=== PATIENT | male | born 1975 | race Caucasian/White ===

== ENCOUNTER 2017-01-12 23:50 | Inpatient (IN) | payer OTHER ==
--- NOTE | ~2017-01-12 | CO ---
Unit #: [id number] #: [id number] Patient: TIERA CHAN H [id number] [facility] [address] [place], [place] [address] [id number] I MR#: [id number] NAME: TIERA CHAN ROOM: 464 Age: 41 Sex: M Admission Date: 01/13/2017 : 1975 Attending Physician: Ham Ravi M.D. Primary Care Physician: Aramis Sorenson M.D. Consultation Date: 01/21/2017 CONSULTATION REPORT REASON FOR CONSULTATION Followup. DISCUSSION Mr. Tiera Chan is a 41-year-old male, seen in room 464, bed 1, at [facility] on 01/21/2017. The patient was anxious, nervous, mood labile. The patient reports medication is helping him. The patient is reporting still having some withdrawals, but reports medication is helping him. The patient denied any thoughts of harming self or others or any psychotic symptom. REVIEW OF SYSTEMS Complete review of systems unremarkable. MENTAL STATUS EXAMINATION General appearance, the patient dressed in hospital attire, lying comfortably, seemed to be in somewhat pain, anxious. Attention span and concentration, fair. Speech, regular rate and coherent. Oriented in time, place, and person. Mood and affect were labile, anxious. Thought process, coherent. Thought content, the patient denied any thoughts of harming self or others or any psychotic symptom. Recent and remote memory, fair. Language, able to name object and repeat phrases. Fund of knowledge, fair. Insight and judgment, fair to slightly impaired. DIAGNOSES Psychiatric: Opioid use disorder, severe, F11.20; agoraphobia with panic disorder, F40.01; mood disorder, not otherwise specified, F32.9. ASSESSMENT AND PLAN 1. Supportive psychotherapy and psychoeducation provided to the patient. 2. Educated about benefits and side effects of medication and course and prognosis of illness. 3. Continue with current medication with a plan to add Seroquel 50 mg at bedtime. We will continue to follow. Please feel free to call if any questions, telephone #[phone]. Dictated by... Joe Post M.D. JACIEL/sherif TD: 01/21/2017 20:38 JOB #: [id number] Unit #: [id number] #: [id number] Patient: TIERA CHAN CONSULTATION REPORT X Joe Post MD CONSULTATION REPORT
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
--- NOTE | ~2017-01-12 | CO ---
Unit #: [id number] #: [id number] Patient: TIERA WING [id number] [facility] [address] [facility] [place] [facility]. [place], [place] [address] [id number] I MR#: [id number] NAME: TIERA WING. ROOM: 464 Age: 41 Sex: M Admission Date: 01/13/2017 : 1975 Attending Physician: Ham Ravi M.D. Primary Care Physician: Aramis Sorenson M.D. Consultation Date: 01/17/2017 CONSULTATION REPORT REASON FOR CONSULTATION Followup. DISCUSSION Tiera Ruvalcaba is a 41-year-old white male, seen on 01/17/2017 in room 464 at [facility]. The patient's both arms were bandaged. The patient reports that currently withdrawing from opioids. The patient reports medication is helping him. He denied any suicidal or homicidal ideation. Denied any psychotic symptom. The patient reports still having withdrawal symptoms from opioids. REVIEW OF SYSTEMS Complete review of systems unremarkable. MENTAL STATUS EXAMINATION General appearance, the patient dressed casually, lying comfortably in bed. Attention span and concentration, fair. Speech, regular rate. Oriented in time, place, and person. Mood and affect were sad and dysphoric. Thought process, coherent and goal directed. Thought content, the patient denied any thoughts of harming self or others or any psychotic symptom. Recent and remote memory, fair. Language, able to name object, repeat phrases. Fund of knowledge, fair. Insight and judgment, fair to slightly impaired. DIAGNOSES 1. Opioid use disorder, severe, F10.20. 2. Agoraphobia with panic disorder, F40.01. 3. Mood disorder, not otherwise specified, F32.9. ASSESSMENT/PLAN 1. Supportive psychotherapy and psychoeducation were provided to the patient. 2. Educated about benefits and side effects of medication and course and prognosis of illness. 3. If needed, consider increasing the dosage of trazodone if the patient continues to have problems or consider Seroquel. We will closely monitor. Please feel free to call if any questions, telephone #[phone]. Dictated by... Joe Post M.D. JACIEL/sherif MARRUFO: 01/18/2017 13:37 Unit #: [id number] #: [id number] Patient: MECCATIERA H TD: 01/19/2017 06:40 JOB #: [id number] CONSULTATION REPORT X Joe Post MD CONSULTATION REPORT
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
--- NOTE | ~2017-01-12 | CT125 ---
[facility] A Service of [facility] RADIOLOGY TEXT RESULTS PATIENT: TIERA WING LOCATION: [facility] 464-01 : [birth year] UNIT #: [id number] AGE: [address]: Jarrod Crisostomo MD SEX: M ORDER DR: [id number] [place] [address] [facility]. [place], [place] [address] [id number] I MR#: [id number] Acc #: [id number] NAME: TIERA WING : 1975 SEX: M STUDY DATE/TIME: 01/14/2017 9:26 UNIT: [facility] ROOM: 4 STUDY DESCRIPTION: CT Upper Ext Lt W Cont Attending Physician: Jarrod Crisostomo M.D. Ordering Physician: Physician Non-Staff Primary Care Physician: Aramis Sorenson M.D. MEDICAL IMAGING REPORT This report is preliminary unless electronic signature is present EXAM CT left arm with contrast 01/14/2017. HISTORY 41-year-old male with history of IV drug abuse presenting with left arm swelling, erythema, cellulitis. Ultrasound yesterday showing enlargement of the left biceps muscle with ill-defined deep muscular compartment fluid concerning for infection, possible necrotizing fasciitis. CT for further evaluation. TECHNIQUE CT examination of the left upper extremity was performed with IV contrast enhancement from the shoulder through the wrist. Multiplanar reconstructed images. This CT exam was performed with one or more of the following radiation dose reduction techniques: automatic exposure control, adjustment of mA and/or kV according to patient size, and iterative reconstruction. FINDINGS The examination shows evidence of extensive intramuscular abscess within the left biceps muscle extending from the upper third of the arm to the antecubital fossa. This is seen as a rim-enhancing oblong fluid collection extending over 19 cm in length and measuring up to 2.2 x 0.9 cm in short axis diameter. There is evidence of deep muscle compartment swelling in the region of the biceps throughout the upper arm, and intramuscular fluid/edema is best seen on the ultrasound examination yesterday. There is no soft tissue gas to definitively suggest necrotizing fasciitis, but the above listed findings are highly concerning. The patient should be at high risk for development of compartment syndrome. Surgical consultation is recommended. Enlarged left axillary lymph nodes, likely inflammatory in the current STS. [facility] A Service of [facility] RADIOLOGY TEXT RESULTS PATIENT: TIERA WING LOCATION: [facility] 464-01 : [birth year] UNIT #: [id number] AGE: [address]: Jarrod Crisostomo MD SEX: M ORDER DR: clinical setting. No abscess or other fluid collection is seen within the forearm, but there is extensive subcutaneous edema throughout the entire arm. Previous ORIF across a nondisplaced humeral shaft fracture. IMPRESSION 1. Extensive intramuscular abscess throughout the left biceps muscle extending from the proximal third of the upper arm to the elbow over a length of at least 19 cm, measuring up to 2.2 x 0.9 cm. 2. There is a significant associated deep muscle compartment soft tissue swelling around the biceps muscle, and extensive intramuscular edema fluid is visible on ultrasound yesterday. Although no soft tissue gas is visible on this exam, the imaging findings are concerning for developing necrotizing fasciitis. The patient should be at high risk for the development of compartment syndrome. Clinical correlation and surgical consultation recommended. 3. Extensive subcutaneous soft tissue edema within the arm. No forearm abscess is visible. 4. Left axillary adenopathy, nonspecific but likely inflammatory. Joaquin fixation across nondisplaced humeral shaft fracture. Dictated by... Porfirio Figueroa M.D. THIS IS AN ELECTRONICALLY VERIFIED REPORT Porfirio Figueroa M.D. at 01/14/2017 3:06 PM Graciela TD: 01/14/2017 11:11 JOB #: [id number] MEDICAL IMAGING REPORT COPY
--- NOTE | ~2017-01-12 | US139 ---
[facility] A Service of [facility] RADIOLOGY TEXT RESULTS PATIENT: TIERA WING LOCATION: [facility] 46-01 : [birth year] UNIT #: [id number] AGE: [address]: Jarrod Crisostomo MD SEX: M ORDER DR: [id number] [facility]. [place] [id number] [facility]. [place], [place] [address] [id number] I MR#: [id number] Acc #: [id number] NAME: TIERA WING : 1975 SEX: M STUDY DATE/TIME: 01/13/2017 10:38 UNIT: [facility] ROOM: [facility] STUDY DESCRIPTION: US UE Veins Complete Kilo Stdy Attending Physician: Jarrod Crisostomo M.D. Ordering Physician: Ed Doctor [id number] [facility] Primary Care Physician: Aramis Sorenson M.D. MEDICAL IMAGING REPORT This report is preliminary unless electronic signature is present EXAM Venous Doppler ultrasound, both legs, 01/13/2017. HISTORY 41-year-old male with history of IV drug abuse. Bilateral arm pain and swelling. TECHNIQUE Venous Doppler ultrasound examination of both upper extremities using johnson-scale, spectral Doppler, color flow Doppler ultrasound imaging. FINDINGS There is no evidence of upper extremity DVT on the right or left. Internal jugular vein, subclavian vein, axillary vein and brachial veins are patent bilaterally. No superficial venous thrombus is seen within the cephalic or basilic veins. Extensive subcutaneous fluid collection is seen within the right forearm measuring up to 0.8 cm in thickness and at least 3 cm in length, although there may be inner connections with smaller collections. On the left, ill-defined fluid surrounds the left biceps muscle, concerning for deep compartment infection. If there is clinical concern for necrotizing fasciitis, CT examination of the arm with contrast is recommended. IMPRESSION 1. No evidence of upper extremity DVT on the right or left. 2. Extensive and ill-defined subcutaneous fluid collection in the left distal forearm as noted, concerning for abscess on the current clinical setting. 3. Ill-defined fluid surrounds portions of an enlarged right biceps muscle within the upper arm. The appearance is concerning for deep STS. [facility] A Service of [facility] RADIOLOGY TEXT RESULTS PATIENT: TIERA WING LOCATION: [place] [address] : [birth year] UNIT #: [id number] AGE: [address]: Jarrod Crisostomo MD SEX: M ORDER DR: compartment muscular space infection. If there is clinical concern for necrotizing fasciitis or compartment syndrome, CT examination of the left arm with IV contrast is recommended for further evaluation. Dictated by... Porfirio Figueroa M.D. THIS IS AN ELECTRONICALLY VERIFIED REPORT Porfirio Figueroa M.D. at 01/13/2017 3:01 PM ARNALDO/brook TD: 01/13/2017 11:44 JOB #: [id number] MEDICAL IMAGING REPORT COPY
--- NOTE | ~2017-01-12 | OR ---
Unit #: [id number] #: [id number] Patient: TIERA WING [id number] [address] [address] [id number] I MR#: [id number] NAME: TIERA WING. ROOM: 464 Date of Procedure: 01/15/2017 Admission Date: 01/13/2017 Surgeon: Anoop Roland M.D. : 1975 Attending Physician: Ham Ravi M.D. Primary Care Physician: Aramis Sorenson M.D. OPERATIVE REPORT JOB NOTE: CC: HIPS PHYSICIAN PREOPERATIVE DIAGNOSIS Multiple abscesses of right and left upper extremities. POSTOPERATIVE DIAGNOSIS Multiple abscesses of right and left upper extremities. PROCEDURES PERFORMED 1. Incision and drainage of right forearm abscess x2. 2. Incision and drainage of left forearm abscess x2. 3. Incision and drainage of left upper extremity intramuscular abscess. ANESTHESIA General LMA anesthesia with 0.5% Marcaine plain local anesthesia. FINDINGS The patient was found to have superficial abscesses 3 to 4 cm in size x2 on the right forearm and of the left forearm. There was a large deep abscess extending from the left antecubital fossa up intramuscularly between the heads of the biceps. FLUIDS 1000 mL of crystalloid. ESTIMATED BLOOD LOSS 20 mL. DRAINS None. TUBES None. SPECIMENS Sent to microbiology. COMPLICATIONS None apparent. CONDITION The patient tolerated the procedure well. Unit #: [id number] #: [id number] Patient: TIERA WING INDICATIONS FOR PROCEDURE The patient is a 41-year-old white male, who presents at this time with multiple biopsies of right and left upper extremities. He states he has been injecting heroin. He presents at this time for further evaluation and treatment. DESCRIPTION OF PROCEDURE After obtaining informed consent as well as receiving scheduled antibiotics, the patient was brought to the operating room and after adequate general LMA anesthesia was obtained, had both his right and left upper extremities prepped and draped in a sterile fashion. Beginning on the right forearm, there were two 3 to 4 cm abscesses there near each other. Each was incised with a knife and then hemostasis obtained with the Bovie. Cultures were sent to microbiology. All loculations were broken up. All areas were irrigated and infiltrated with 0.5% Marcaine plain local anesthesia. Hemostasis was obtained with the Bovie and packed with saline soaked fluff dressings. In a similar fashion, there were 2 abscesses of the left forearm. They were incised, drained, and irrigated. Hemostasis obtained with the Bovie and then infiltrated with 0.5% Marcaine plain local anesthesia and packed with saline soaked fluffs. An incision was now made longitudinally on the anterior surface of the biceps area of the left upper extremity. It was made through the skin with a knife into the subcutaneous tissues to the level of the musculature with the Bovie. A hemostat was used to gently probe between the heads of the biceps and a large amount of purulent material was evacuated. The incision was extended proximally and distally. All loculations were broken up. A large abscess cavity was found in the antecubital fossa and extended between the heads of the biceps. Loculations were broken up. The wound was irrigated and hemostasis was obtained with Bovie, infiltrated with 0.5% Marcaine plain local anesthesia and packed with a saline soaked Tevin. A dry dressings were applied to all areas followed by a Kerlix wrap and an Nolan wrap. Needle counts, sponge counts, and instrument counts were all correct as reported by the scrub nurse x2. The patient went from the operating room to the recovery room in stable condition. Dictated by... Yosi Escudero/sherif TD: 01/15/2017 22:07 JOB #: [id number] CC: [facility] OPERATIVE REPORT X Anoop Roland MD X PROCEDURE OPERATIVE NOTE
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
--- NOTE | ~2017-01-12 | XA51 ---
[facility] A Service of [facility] RADIOLOGY TEXT RESULTS PATIENT: TIERA WING LOCATION: [place] [address] : [birth year] UNIT #: [id number] AGE: [address]: Ham Ravi MD SEX: M ORDER DR: [id number] [place] [id number] [facility]. [place], [place] [address] [id number] MR#: [id number] Acc #: [id number] NAME: TIERA WING. : 1975 SEX: M STUDY DATE/TIME: 01/22/2017 10:29 UNIT: [facility] ROOM: [facility] STUDY DESCRIPTION: XA BX Bone Marrow Attending Physician: Ham Ravi M.D. Ordering Physician: Shreyas Serna M.D. Primary Care Physician: Aramis Sorenson M.D. MEDICAL IMAGING REPORT This report is preliminary unless electronic signature is present EXAM Fluoroscopically guided bone marrow aspiration and biopsy DATE: 01/22/17 HISTORY: Anemia PROCEDURE: Informed consent was obtained. The skin site was selected using fluoroscopic guidance and marked, sterilely prepped and draped and locally anesthetized. Fentanyl and Versed were administered for IV conscious sedation with hemodynamic monitoring by the nursing staff throughout the procedure. After local anesthesia, through a small incision a Jamshidi needle was used to aspirate and core specimen from right posterior ilium. A single spot image was obtained, fluoro time 0.8 minutes. IMPRESSION Successful fluoroscopically guided bone marrow aspiration and core biopsy from the right posterior ilium using local anesthesia and conscious sedation. No complications. Dictated by... Servando Bustamante M.D. THIS IS AN ELECTRONICALLY VERIFIED REPORT Servando Bustamante M.D. at 02/01/2017 3:46 PM KENYON/damir TD: 01/30/2017 13:30 JOB #: [id number] [facility] A Service [facility] RADIOLOGY TEXT RESULTS PATIENT: TIERA WING [facility] [id number] : [birth year] UNIT #: [id number] AGE: [address]: Ham Ravi MD SEX: M ORDER DR: MEDICAL IMAGING REPORT COPY
--- NOTE | ~2017-01-12 | EKG ---
PATIENT: TIERA WING UNIT #: [id number] Ventricular Rate: 108 BPM Atrial Rate: 108 BPM P-R Interval: 136 ms QRS Duration: 84 ms Q-T Interval: 342 ms QTC Calculation(Bezet): 458 ms P [place]: 63 degrees Calculated R [place]: 8 degrees Calculated T [place]: 47 degrees Diagnosis Line: Sinus tachycardia Diagnosis Line: Possible Left atrial enlargement Diagnosis Line: Borderline ECG Diagnosis Line: When compared with ECG of 06-NOV-2016 18:44, Diagnosis Line: No significant change was found Diagnosis Line: Confirmed by MAGUE DOTSON MD ([id number]) on Diagnosis Line: 01/14/2017 10:36:56 PM INTERPRETING MD: PASHA
--- NOTE | ~2017-01-12 | CO ---
Unit #: [id number] #: [id number] Patient: TIERA WING [id number] [address] [place], [place] [address] [id number] I MR#: [id number] NAME: TIERA WING ROOM: 464 Age: 41 Sex: M Admission Date: 01/13/2017 : 1975 Attending Physician: Ham Ravi M.D. Primary Care Physician: Aramis Sorenson M.D. Consultation Date: 01/18/2017 CONSULTATION REPORT REASON FOR CONSULTATION Followup. DISCUSSION Mr. Tiera Soriano is a 41-year-old white male, seen on 01/18/2017, in room 464. The patient was pleasant and cooperative during interview. The patient's both arms were bandaged and having problem with bleeding from the right hand. According to the nurse and the patient, the patient having problems with blood disorder and is scheduled to have a bone marrow biopsy. The patient was somewhat anxious and nervous and reported having some trouble sleeping. The patient's hemoglobin was 9.2 and platelets 1405, high. The patient reported still having anxiety, but medication is helping. The patient currently denied any suicidal or homicidal ideation. Compliant with medication. Cooperative on the unit. REVIEW OF SYSTEMS Complete review of systems is unremarkable except as mentioned above. MENTAL STATUS EXAMINATION General appearance; the patient dressed casually in hospital attire, lying comfortably in bed, seemed to be somewhat anxious. The patient's both arms were bandaged. Attention span and concentration, fair. Speech, regular rate and coherent. Oriented in time, place, and person. Mood and affect were labile and anxious. Thought process, coherent. Thought content, the patient denied any thoughts of harming self or others or any psychotic symptom. Recent and remote memory, fair. Language, able to name object and repeat phrases. Fund of knowledge, fair. Insight and judgment, fair to slightly impaired. DIAGNOSES Psychiatric: Opioid use disorder, severe, F11.20; agoraphobia with panic disorder, F40.01; and mood disorder, not otherwise specified, F32.9. ASSESSMENT/PLAN 1. Supportive psychotherapy and psychoeducation provided to the patient. 2. Educated about benefits and side effects of medication and course and prognosis of illness. 3. We will continue with current medication. If needed, consider adjusting the dosage of trazodone or consider Seroquel. We will continue to follow. Please feel free to call if any questions, telephone #[phone]. Dictated by... Unit #: [id number] #: [id number] Patient: TIERA WING Yosi Plummer/sherif TD: 01/19/2017 17:40 JOB #: [id number] CONSULTATION REPORT X Joe Post MD X CONSULTATION REPORT
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
--- NOTE | ~2017-01-12 | CR63 ---
[facility] A Service of [facility] RADIOLOGY TEXT RESULTS PATIENT: TIERA WING LOCATION: [place] [address] : [birth year] UNIT #: [id number] AGE: [address]: Jarrod Crisostomo MD SEX: M ORDER DR: [id number] [place] [id number] [facility]. [place], [place] [address] [id number] I MR#: [id number] Acc #: [id number] NAME: TIERA WING : 1975 SEX: M STUDY DATE/TIME: 01/13/2017 9:27 UNIT: [facility] ROOM: [facility] STUDY DESCRIPTION: CR Chest 2 View Attending Physician: Jarrod Crisostomo M.D. Ordering Physician: Ed Doctor [id number] [facility] Primary Care Physician: Aramis Sorenson M.D. MEDICAL IMAGING REPORT This report is preliminary unless electronic signature is present EXAM PA and lateral chest 01/13/2017. HISTORY 41-year-old male in the ED complaining of new onset shortness of air, cough and wheezing beginning last evening. TECHNIQUE PA and lateral upright chest series. FINDINGS Exam shows no definite active disease in the chest. There are prior left third and fourth rib fractures, and an adjacent left upper lobe pneumatocele visible on 10/30/2016 has largely regressed with only mild adjacent pleural thickening and linear pulmonary scarring in this location today. No convincing acute pulmonary filtrate or pleural effusion. Heart size and pulmonary vascularity are normal. Previous ORIF left humerus fracture. IMPRESSION 1. No active disease. 2. Post-traumatic changes in the left upper chest including old rib fractures and pulmonary and pleural scarring. Dictated by... Porfirio Figueroa M.D. THIS IS AN ELECTRONICALLY VERIFIED REPORT Porfirio Figueroa M.D. at 01/13/2017 3:01 PM ARNALDO/brook TD: 01/13/2017 13:06 [facility] A Service of [facility] RADIOLOGY TEXT RESULTS PATIENT: TIERA WING LOCATION: [place] [address] : [birth year] UNIT #: [id number] AGE: [address]: Jarrod Crisostomo MD SEX: M ORDER DR: JOB #: [id number] MEDICAL IMAGING REPORT COPY
[~2017-01-12 23:50] MED LIST: ACETAMINOPHEN650 M1 PO; CLEOCIN PO; DAKIN'S MODIF1000 ML EXT; DESYREL50 MG PO; FOLIC ACID PO; KLONOPIN PO; LORTAB 7.51 TAB PO; NICOTINE TRANSD14 MG EXT; NICOTINE TRANSD21 MG EXT; NO MEDICATIONS; PERCOCET 7.5/321 TAB PO; PROTONIX PO; SEROQUEL PO; VICODIN 5/1 TAB 5/50 DOB; VISTARIL PO
[2017-01-13 02:31] LABS: POC - CKMB <1.0 ng/mL (0.0-7.9); POC - TROPONIN <0.05 ng/mL (<=0.05)
[2017-01-13 02:35] LABS: AMPHETAMINE NEG (NEG); BARBITURATES NEG (NEG); BENZODIAZEPINES POS (NEG); COCAINE NEG (NEG); MARIJUANA POS (NEG); OPIATES POS (NEG); TRICYCLIC ANTIDEPRESSANTS POS (NEG); U METHADONE NEG (NEG)
[2017-01-13 02:37] LABS: ALBUMIN SERUM 3.4 g/dL (3.5-5.0); ALCOHOL BLOOD 48 mg/dL (0); ALKALINE PHOSPHATASE 202 U/L (32-92); ALT (SGPT) 31 U/L (10-40); AST (SGOT) 49 U/L (10-42); BILIRUBIN, DIRECT 0.1 mg/dL (0.0-0.2); BILIRUBIN,INDIRECT 0.3 mg/dL (0.0-0.9); BILIRUBIN,TOTAL 0.4 mg/dL (0.2-2.0); BLOOD UREA NITROGEN 11 mg/dL (9-23); BUN/CREATININE RATIO 12.22; CALCIUM SERUM 8.1 mg/dL (8.4-10.2); CARBON DIOXIDE 23 mmol/L (22-31); CHLORIDE 101 mmol/L (100-111); CREATININE SERUM 0.9 mg/dL (0.6-1.4); GLOM FILT RATE Estimated ABOVE60 mL/min (>60); GLUCOSE FASTING 91 mg/dL (70-110); PROTEIN TOTAL SERUM 7.8 g/dL (6.0-8.3); SALICYLATE <4.0 mg/dL; SODIUM 133 mmol/L (135-145)
[2017-01-13 02:47] LABS: ACETAMINOPHEN <10 ug/mL
[2017-01-13] MEDS ORDERED: CALCIUM 600 + D1 TAB PO (03:01)
[2017-01-13] MEDS ORDERED: A THRU Z ADVAN1 EAC1 PO (03:01)
[2017-01-13] MEDS ORDERED: GRALISE1 EACH PO (03:03)
[2017-01-13] MEDS ORDERED: CLARITIN10 M2 PO (03:03)
[2017-01-13] MEDS ORDERED: MORPHINE SULFAT15 M3 PO (03:04)
[2017-01-13] MEDS ORDERED: OMEPRAZOLE20 M1 PO (03:05)
[2017-01-13] MEDS ORDERED: QUETIAPINE FUM100 MG PO (03:06)
[2017-01-13 11:58] LABS: BASOPHIL# 0.2 X10e3 (0-0.3); BASOPHIL% 0.6 % (0-2.5); EOSINOPHIL# 0.7 X10e3 (0-0.7); EOSINOPHIL% 2.4 % (0.0-7.0); HEMATOCRIT 39.3 % (38.0-50.0); HEMOGLOBIN 12.4 gm/dL (13.0-16.0); LYMPHOCYTE# 2.7 X10e3 (1.0-3.5); LYMPHOCYTE% 9.6 % (17.0-45.0); MEAN CELL VOLUME 83.2 FL (83-96); MEAN CORPUSCULAR HEMOGLOBIN 26.3 PG (28-34); MEAN CORPUSCULAR HGB CONC 31.7 g/dL (30-36); MEAN PLATELET VOLUME 7.8 FL (6.5-11.5); MONOCYTE# 4.4 X10e3 (0-1.0); MONOCYTE% 15.4 % (3.0-12.0); NEUTROPHIL# 20.4 X10e3 (1.5-7.1); RED BLOOD COUNT 4.72 X10e (3.90-5.60); RED CELL DISTRIBUTION WIDTH 16.7 % (11.0-15.5); WHITE BLOOD COUNT 28.4 X10e3 (4.0-10.5)
[2017-01-13 12:00] LABS: DIFF IND YES; PLATELET COUNT 1303 X10e3 (140-420)
[2017-01-13 12:14] LABS: CREATININE SERUM 0.8 mg/dL (0.6-1.4); GLOM FILT RATE Estimated ABOVE60 mL/min (>60)
[2017-01-13 12:17] LABS: INR 1.1; PROTHROMBIN TIME (PATIENT) 11.2 SECONDS (9.6-11.5)
[2017-01-13 12:46] LABS: ANISOCYTOSIS SL; HYPOCHROMIA SL; MICROCYTOSIS SL; PLATELET ESTIMATE INCREASED (NORMAL)
[2017-01-13 17:21] LABS: PTT INCUB PAT + PNP 37.3 SECONDS; PTT INCUB PNP 29.4 SECONDS; PTT INCUBATED PATIENT 46.1 SECONDS; PTT PAT + PNP 33.1 SECONDS; PTT PATIENT 41.8 SECONDS (26.2-37.7); PTT PNP 26.8 SECONDS
[2017-01-14 02:42] LABS: BASOPHIL# 0.3 X10e3 (0-0.3); BASOPHIL% 1.2 % (0-2.5); EOSINOPHIL# 0.4 X10e3 (0-0.7); EOSINOPHIL% 1.6 % (0.0-7.0); HEMATOCRIT 39.5 % (38.0-50.0); HEMOGLOBIN 12.6 gm/dL (13.0-16.0); LYMPHOCYTE# 3.2 X10e3 (1.0-3.5); LYMPHOCYTE% 11.6 % (17.0-45.0); MEAN CELL VOLUME 82.8 FL (83-96); MEAN CORPUSCULAR HEMOGLOBIN 26.5 PG (28-34); MEAN PLATELET VOLUME 8.3 FL (6.5-11.5); MONOCYTE# 4.4 X10e3 (0-1.0); MONOCYTE% 16.3 % (3.0-12.0); NEUTROPHIL# 18.9 X10e3 (1.5-7.1); NEUTROPHIL% 69.3 % (40-75); RED BLOOD COUNT 4.77 X10e (3.90-5.60); RED CELL DISTRIBUTION WIDTH 16.3 % (11.0-15.5); WHITE BLOOD COUNT 27.2 X10e3 (4.0-10.5)
[2017-01-14 02:44] LABS: PLATELET COUNT 1313 X10e3 (140-420)
[2017-01-14 02:45] LABS: DIFF IND NO
[2017-01-14 02:55] LABS: BLOOD UREA NITROGEN 10 mg/dL (9-23); BUN/CREATININE RATIO 11.11; CARBON DIOXIDE 26 mmol/L (22-31); CHLORIDE 104 mmol/L (100-111); CREATININE SERUM 0.9 mg/dL (0.6-1.4); GLOM FILT RATE Estimated ABOVE60 mL/min (>60); GLUCOSE FASTING 112 mg/dL (70-110); POTASSIUM 3.8 mmol/L (3.5-5.1); SODIUM 133 mmol/L (135-145)
[2017-01-14 10:55] LABS: CPK (CREATINE PHOSPHOKINASE) 23 IU/L (36-174); LACTIC ACID DEHYDROGENASE 141 U/L (91-180)
[2017-01-15 02:46] LABS: BASOPHIL# 0.2 X10e3 (0-0.3); BASOPHIL% 0.9 % (0-2.5); EOSINOPHIL# 0.9 X10e3 (0-0.7); EOSINOPHIL% 3.6 % (0.0-7.0); HEMATOCRIT 35.6 % (38.0-50.0); HEMOGLOBIN 11.2 gm/dL (13.0-16.0); LYMPHOCYTE# 3.1 X10e3 (1.0-3.5); LYMPHOCYTE% 12.7 % (17.0-45.0); MEAN CELL VOLUME 82.7 FL (83-96); MEAN CORPUSCULAR HEMOGLOBIN 25.9 PG (28-34); MEAN CORPUSCULAR HGB CONC 31.4 g/dL (30-36); MEAN PLATELET VOLUME 8.2 FL (6.5-11.5); MONOCYTE# 3.7 X10e3 (0-1.0); MONOCYTE% 15.1 % (3.0-12.0); NEUTROPHIL# 16.4 X10e3 (1.5-7.1); NEUTROPHIL% 67.7 % (40-75); RED BLOOD COUNT 4.31 X10e (3.90-5.60); RED CELL DISTRIBUTION WIDTH 16.3 % (11.0-15.5); WHITE BLOOD COUNT 24.3 X10e3 (4.0-10.5)
[2017-01-15 02:48] LABS: PLATELET COUNT 1191 X10e3 (140-420)
[2017-01-15 02:49] LABS: DIFF IND NO
[2017-01-15 03:03] LABS: BLOOD UREA NITROGEN 9 mg/dL (9-23); BUN/CREATININE RATIO 11.25; CALCIUM SERUM 7.9 mg/dL (8.4-10.2); CARBON DIOXIDE 25 mmol/L (22-31); CHLORIDE 103 mmol/L (100-111); CREATININE SERUM 0.8 mg/dL (0.6-1.4); GLOM FILT RATE Estimated ABOVE60 mL/min (>60); GLUCOSE FASTING 137 mg/dL (70-110); SODIUM 135 mmol/L (135-145)
[2017-01-16 03:32] LABS: HEMOGLOBIN 10.1 gm/dL (13.0-16.0); MEAN CORPUSCULAR HEMOGLOBIN 26.3 PG (28-34); MEAN CORPUSCULAR HGB CONC 31.7 g/dL (30-36); MEAN PLATELET VOLUME 8.1 FL (6.5-11.5); RED BLOOD COUNT 3.85 X10e (3.90-5.60); RED CELL DISTRIBUTION WIDTH 16.5 % (11.0-15.5); WHITE BLOOD COUNT 23.3 X10e3 (4.0-10.5)
[2017-01-16 04:05] LABS: BLOOD UREA NITROGEN 9 mg/dL (9-23); CALCIUM SERUM 7.7 mg/dL (8.4-10.2); CARBON DIOXIDE 26 mmol/L (22-31); CHLORIDE 106 mmol/L (100-111); CREATININE SERUM 0.9 mg/dL (0.6-1.4); GLOM FILT RATE Estimated ABOVE60 mL/min (>60); GLUCOSE FASTING 151 mg/dL (70-110); MAGNESIUM 1.7 mg/dL (1.6-3.0); POTASSIUM 3.7 mmol/L (3.5-5.1); SODIUM 134 mmol/L (135-145)
[2017-01-17 04:28] LABS: BASOPHIL# 0.2 X10e3 (0-0.3); BASOPHIL% 1.1 % (0-2.5); EOSINOPHIL# 1.4 X10e3 (0-0.7); EOSINOPHIL% 6.8 % (0.0-7.0); HEMATOCRIT 31.7 % (38.0-50.0); HEMOGLOBIN 10.3 gm/dL (13.0-16.0); LYMPHOCYTE# 4.3 X10e3 (1.0-3.5); LYMPHOCYTE% 20.7 % (17.0-45.0); MEAN CELL VOLUME 82.8 FL (83-96); MEAN CORPUSCULAR HEMOGLOBIN 26.9 PG (28-34); MEAN CORPUSCULAR HGB CONC 32.5 g/dL (30-36); MEAN PLATELET VOLUME 8.3 FL (6.5-11.5); MONOCYTE# 3.6 X10e3 (0-1.0); MONOCYTE% 17.6 % (3.0-12.0); NEUTROPHIL# 11.1 X10e3 (1.5-7.1); NEUTROPHIL% 53.8 % (40-75); RED BLOOD COUNT 3.83 X10e (3.90-5.60); RED CELL DISTRIBUTION WIDTH 16.4 % (11.0-15.5); WHITE BLOOD COUNT 20.6 X10e3 (4.0-10.5)
[2017-01-17 04:47] LABS: BLOOD UREA NITROGEN 7 mg/dL (9-23); CALCIUM SERUM 8.2 mg/dL (8.4-10.2); CARBON DIOXIDE 28 mmol/L (22-31); CHLORIDE 106 mmol/L (100-111); GLOM FILT RATE Estimated ABOVE60 mL/min (>60); GLUCOSE FASTING 125 mg/dL (70-110); MAGNESIUM 1.8 mg/dL (1.6-3.0); SODIUM 138 mmol/L (135-145)
[2017-01-17 04:52] LABS: DIFF IND YES; PLATELET COUNT 1355 X10e3 (140-420)
[2017-01-17 04:56] LABS: POTASSIUM 5.7 mmol/L (3.5-5.1)
[2017-01-17 05:30] LABS: ANISOCYTOSIS SL; PLATELET ESTIMATE INCREASED (NORMAL)
[2017-01-17 08:05] LABS: BLOOD UREA NITROGEN 6 mg/dL (9-23); CALCIUM SERUM 8.2 mg/dL (8.4-10.2); CARBON DIOXIDE 27 mmol/L (22-31); CHLORIDE 104 mmol/L (100-111); GLOM FILT RATE Estimated ABOVE60 mL/min (>60); GLUCOSE FASTING 92 mg/dL (70-110); SODIUM 139 mmol/L (135-145)
[2017-01-17 08:07] LABS: POTASSIUM 4.1 mmol/L (3.5-5.1)
[2017-01-17 22:02] LABS: HA AB IGM (HEPPAN) Nonreactive (Nonreactive); HB CORE AB IGM (HEPPAN) Nonreactive (Nonreactive); HB S AG (HEPPAN) Nonreactive (Nonreactive); HEP C AB (HEPPAN) Reactive (Nonreactive)
[2017-01-18 03:59] LABS: BASOPHIL# 0.1 X10e3 (0-0.3); BASOPHIL% 0.4 % (0-2.5); EOSINOPHIL# 1.7 X10e3 (0-0.7); EOSINOPHIL% 8.7 % (0.0-7.0); HEMATOCRIT 29.3 % (38.0-50.0); HEMOGLOBIN 9.2 gm/dL (13.0-16.0); LYMPHOCYTE# 4.3 X10e3 (1.0-3.5); LYMPHOCYTE% 21.6 % (17.0-45.0); MEAN CELL VOLUME 82.2 FL (83-96); MEAN CORPUSCULAR HEMOGLOBIN 25.8 PG (28-34); MEAN CORPUSCULAR HGB CONC 31.4 g/dL (30-36); MEAN PLATELET VOLUME 8.1 FL (6.5-11.5); MONOCYTE# 3.1 X10e3 (0-1.0); MONOCYTE% 15.5 % (3.0-12.0); NEUTROPHIL# 10.7 X10e3 (1.5-7.1); NEUTROPHIL% 53.8 % (40-75); RED BLOOD COUNT 3.57 X10e (3.90-5.60); RED CELL DISTRIBUTION WIDTH 16.6 % (11.0-15.5); WHITE BLOOD COUNT 19.9 X10e3 (4.0-10.5)
[2017-01-18 04:07] LABS: DIFF IND NO; PLATELET COUNT 1405 X10e3 (140-420)
[2017-01-18 06:00] LABS: BLOOD UREA NITROGEN 7 mg/dL (9-23); BUN/CREATININE RATIO 6.36; CARBON DIOXIDE 29 mmol/L (22-31); CHLORIDE 104 mmol/L (100-111); CREATININE SERUM 1.1 mg/dL (0.6-1.4); GLOM FILT RATE Estimated ABOVE60 mL/min (>60); GLUCOSE FASTING 101 mg/dL (70-110); SODIUM 139 mmol/L (135-145)
[2017-01-19 04:15] LABS: HEMATOCRIT 29.1 % (38.0-50.0); HEMOGLOBIN 9.4 gm/dL (13.0-16.0); MEAN CELL VOLUME 82.4 FL (83-96); MEAN CORPUSCULAR HEMOGLOBIN 26.5 PG (28-34); MEAN CORPUSCULAR HGB CONC 32.2 g/dL (30-36); MEAN PLATELET VOLUME 8.3 FL (6.5-11.5); RED BLOOD COUNT 3.53 X10e (3.90-5.60); WHITE BLOOD COUNT 18.5 X10e3 (4.0-10.5)
[2017-01-19 04:24] LABS: PARTIAL THROMBOPLASTIN TIME 39.6 SECONDS (23.5-31.3); PROTHROMBIN TIME (PATIENT) 10.9 SECONDS (9.6-11.5)
[2017-01-19 04:39] LABS: ALBUMIN SERUM 2.5 g/dL (3.5-5.0); ALKALINE PHOSPHATASE 81 U/L (32-92); ALT (SGPT) 14 U/L (10-40); AST (SGOT) 21 U/L (10-42); BILIRUBIN,TOTAL 0.4 mg/dL (0.2-2.0); BLOOD UREA NITROGEN 9 mg/dL (9-23); CALCIUM SERUM 8.2 mg/dL (8.4-10.2); CARBON DIOXIDE 29 mmol/L (22-31); CHLORIDE 106 mmol/L (100-111); GLOM FILT RATE Estimated ABOVE60 mL/min (>60); GLUCOSE FASTING 95 mg/dL (70-110); POTASSIUM 4.4 mmol/L (3.5-5.1); PROTEIN TOTAL SERUM 6.5 g/dL (6.0-8.3); SODIUM 140 mmol/L (135-145)
[2017-01-19 19:38] LABS: IRON SERUM 9 ug/dL (45-182); TOTAL IRON BINDING CAPACITY 257 ug/dL (252-460); TRANSFERRIN 184 mg/dL (180-329); TRANSFERRIN SATURATION 4 % (20-50)
[2017-01-19 19:51] LABS: FERRITIN 61 ng/mL (24-336)
[2017-01-20 07:09] LABS: HEMATOCRIT 21.5 % (38.0-50.0); MEAN CELL VOLUME 81.8 FL (83-96); MEAN CORPUSCULAR HEMOGLOBIN 26.2 PG (28-34); MEAN PLATELET VOLUME 8.2 FL (6.5-11.5); RED BLOOD COUNT 2.63 X10e (3.90-5.60); RED CELL DISTRIBUTION WIDTH 16.7 % (11.0-15.5); WHITE BLOOD COUNT 23.1 X10e3 (4.0-10.5)
[2017-01-20 07:15] LABS: HEMOGLOBIN 6.9 gm/dL (13.0-16.0)
[2017-01-20 07:48] LABS: ALBUMIN SERUM 2.4 g/dL (3.5-5.0); ALKALINE PHOSPHATASE 78 U/L (32-92); ALT (SGPT) 12 U/L (10-40); AST (SGOT) 17 U/L (10-42); BILIRUBIN,TOTAL 0.3 mg/dL (0.2-2.0); BLOOD UREA NITROGEN 12 mg/dL (9-23); CALCIUM SERUM 8.2 mg/dL (8.4-10.2); CARBON DIOXIDE 29 mmol/L (22-31); CHLORIDE 102 mmol/L (100-111); GLOM FILT RATE Estimated ABOVE60 mL/min (>60); GLUCOSE FASTING 98 mg/dL (70-110); POTASSIUM 4.3 mmol/L (3.5-5.1); SODIUM 139 mmol/L (135-145)
[2017-01-21 03:02] LABS: HEMATOCRIT 28.5 % (38.0-50.0); MEAN CELL VOLUME 82.9 FL (83-96); MEAN CORPUSCULAR HEMOGLOBIN 26.9 PG (28-34); MEAN CORPUSCULAR HGB CONC 32.5 g/dL (30-36); MEAN PLATELET VOLUME 8.5 FL (6.5-11.5); RED BLOOD COUNT 3.44 X10e (3.90-5.60); RED CELL DISTRIBUTION WIDTH 16.3 % (11.0-15.5); WHITE BLOOD COUNT 23.5 X10e3 (4.0-10.5)
[2017-01-21 03:29] LABS: HEMOGLOBIN 9.3 gm/dL (13.0-16.0)
[2017-01-21 04:19] LABS: BLOOD UREA NITROGEN 15 mg/dL (9-23); CALCIUM SERUM 8.5 mg/dL (8.4-10.2); CARBON DIOXIDE 30 mmol/L (22-31); CHLORIDE 99 mmol/L (100-111); CREATININE SERUM 1.2 mg/dL (0.6-1.4); GLOM FILT RATE Estimated ABOVE60 mL/min (>60); GLUCOSE FASTING 100 mg/dL (70-110); POTASSIUM 4.2 mmol/L (3.5-5.1); SODIUM 138 mmol/L (135-145)
[2017-01-21 20:14] LABS: BASOPHIL# 0.4 X10e3 (0-0.3); BASOPHIL% 1.6 % (0-2.5); EOSINOPHIL% 4.1 % (0.0-7.0); HEMATOCRIT 32.4 % (38.0-50.0); HEMOGLOBIN 10.4 gm/dL (13.0-16.0); LYMPHOCYTE# 5.3 X10e3 (1.0-3.5); LYMPHOCYTE% 21.2 % (17.0-45.0); MEAN CORPUSCULAR HGB CONC 32.2 g/dL (30-36); MEAN PLATELET VOLUME 8.6 FL (6.5-11.5); MONOCYTE# 2.3 X10e3 (0-1.0); MONOCYTE% 9.1 % (3.0-12.0); NEUTROPHIL# 15.9 X10e3 (1.5-7.1); RED BLOOD COUNT 3.85 X10e (3.90-5.60); RED CELL DISTRIBUTION WIDTH 16.6 % (11.0-15.5); WHITE BLOOD COUNT 24.9 X10e3 (4.0-10.5)
[2017-01-21 20:30] LABS: PLATELET COUNT 1403 X10e3 (140-420)
[2017-01-21 20:31] LABS: DIFF IND YES
[2017-01-21 20:38] LABS: PLATELET ESTIMATE INCREASED (NORMAL)
[2017-01-21 20:39] LABS: ANISOCYTOSIS MOD; POLYCHROMASIA SL
[2017-01-21 20:40] LABS: STOMATOCYTE PRESENT
[2017-01-22 04:22] LABS: BASOPHIL# 0.4 X10e3 (0-0.3); BASOPHIL% 1.7 % (0-2.5); EOSINOPHIL# 1.3 X10e3 (0-0.7); EOSINOPHIL% 5.6 % (0.0-7.0); HEMATOCRIT 28.2 % (38.0-50.0); HEMOGLOBIN 9.1 gm/dL (13.0-16.0); LYMPHOCYTE# 5.4 X10e3 (1.0-3.5); LYMPHOCYTE% 22.3 % (17.0-45.0); MEAN CELL VOLUME 83.4 FL (83-96); MEAN CORPUSCULAR HGB CONC 32.4 g/dL (30-36); MEAN PLATELET VOLUME 8.6 FL (6.5-11.5); MONOCYTE# 2.6 X10e3 (0-1.0); MONOCYTE% 10.6 % (3.0-12.0); NEUTROPHIL# 14.4 X10e3 (1.5-7.1); NEUTROPHIL% 59.8 % (40-75); RED BLOOD COUNT 3.38 X10e (3.90-5.60); RED CELL DISTRIBUTION WIDTH 16.6 % (11.0-15.5)
[2017-01-22 04:24] LABS: DIFF IND NO; PLATELET COUNT 1418 X10e3 (140-420)
[2017-01-22 04:38] LABS: BLOOD UREA NITROGEN 15 mg/dL (9-23); BUN/CREATININE RATIO 13.63; CALCIUM SERUM 8.7 mg/dL (8.4-10.2); CARBON DIOXIDE 30 mmol/L (22-31); CHLORIDE 101 mmol/L (100-111); CREATININE SERUM 1.1 mg/dL (0.6-1.4); GLOM FILT RATE Estimated ABOVE60 mL/min (>60); GLUCOSE FASTING 110 mg/dL (70-110); POTASSIUM 4.1 mmol/L (3.5-5.1); SODIUM 139 mmol/L (135-145)
[2017-01-22 10:50] LABS: PROTHROMBIN TIME (PATIENT) 10.5 SECONDS (9.6-11.5)
[2017-01-22] MEDS ORDERED: AUGMENTIN875 MG PO (17:16)
[2017-01-22] MEDS ORDERED: VISTARIL PO (17:16)
[2017-01-22] MEDS ORDERED: ACETAMINOPHEN325 MG PO (17:18)
[2017-01-22] MEDS ORDERED: DESYREL100 MG PO (17:48)
== END 2017-01-22 18:25 | disposition home or self-care (01) | DRG 580 ==
LOC: CED 23:50 → C4C 01-13 03:14
PROVIDERS: Emergency Medicine; Family Medicine; Internal Medicine; Internal Medicine Hematology; Internal Medicine Medical Oncology; Nurse Practitioner Family; Physician Assistant Medical; Specialist; Surgery
PROC: 0J9D0ZZ Drainage of Right Upper Arm Subcutaneous Tissue and Fascia, Open Approach (ICD-10-PCS; 2017-01-15)
PROC: 0K980ZZ Drainage of Left Upper Arm Muscle, Open Approach (ICD-10-PCS; 2017-01-15)
PROC: 0J9F0ZZ Drainage of Left Upper Arm Subcutaneous Tissue and Fascia, Open Approach (ICD-10-PCS; principal; 2017-01-15 14:00)
PROC: B24BZZ4 Ultrasonography of Heart with Aorta, Transesophageal (ICD-10-PCS; 2017-01-17)
PROC: 30233N1 Transfusion of Nonautologous Red Blood Cells into Peripheral Vein, Percutaneous Approach (ICD-10-PCS; 2017-01-20)
PROC: 07DR3ZX Extraction of Iliac Bone Marrow, Percutaneous Approach, Diagnostic (ICD-10-PCS; 2017-01-22)
DX: L03.113 Cellulitis of right upper limb (principal); F11.20 Opioid dependence, uncomplicated; M60.001 Infective myositis, unspecified left arm; B19.20 Unspecified viral hepatitis C without hepatic coma; D50.9 Iron deficiency anemia, unspecified; F31.9 Bipolar disorder, unspecified; Z87.11 Personal history of peptic ulcer disease; Z71.51 Drug abuse counseling and surveillance of drug abuser; L02.414 Cutaneous abscess of left upper limb; L03.114 Cellulitis of left upper limb; G89.4 Chronic pain syndrome; D72.829 Elevated white blood cell count, unspecified; F40.01 Agoraphobia with panic disorder; F39 Unspecified mood [affective] disorder; D47.3 Essential (hemorrhagic) thrombocythemia; L02.413 Cutaneous abscess of right upper limb; I34.1 Nonrheumatic mitral (valve) prolapse
CPT/HCPCS: 36415; 71020; 73201; 77002; 80048; 80053; 80074; 80076; 80202; 80307; 81270; 82550; 82553; 82565; 82607; 82728; 83540; 83550; 83605; 83615; 83735; 84484; 85025; 85027; 85610; 85611; 85652; 85730; 85732; 86140; 86850; 86900; 86901; 86923; 87040; 87070; 87075; 87205; 87522; 87806; 88182; 88184; 88185; 88305; 88311; 88313; 88323; 88342; 88377; 93005; 93306; 93312; 93970; 94760; 96365; 96366; 99285; G0480; J0295; J1170; J1650; J1885; J1940; J2250; J2270; J2310; J2405; J2543; J3010; J3370; P9016; Q9967

== ENCOUNTER 2017-06-28 12:28 | Emergency (ER) | payer OTHER ==
[~2017-06-28] VITALS: Ht 172.7 cm; Wt 59.0 kg
[~2017-06-28 12:28] MED LIST changes: +A THRU Z ADVAN1 EAC1 PO; +ACETAMINOPHEN325 MG PO; +AUGMENTIN875 MG PO; +CALCIUM 600 + D1 TAB PO; +CLARITIN10 M2 PO; +DESYREL100 MG PO; +GRALISE1 EACH PO; +MORPHINE SULFAT15 M3 PO; +OMEPRAZOLE20 M1 PO; +QUETIAPINE FUM100 MG PO
== END 2017-06-28 13:21 | disposition left against medical advice (07) ==
LOC: CED 12:28
DX: Z53.21 Procedure and treatment not carried out due to patient leaving prior to being seen by health care provider (principal)

== ENCOUNTER 2017-06-28 14:28 | Inpatient (IN) | payer OTHER ==
[~2017-06-28] VITALS: Ht 172.7 cm; Wt 59.0 kg
--- NOTE | ~2017-06-28 | CO ---
Unit #: [id number] #: [id number] Patient: TIERA WING [id number] [place] [address] [id number] I MR#: [id number] NAME: TIEAR WING. ROOM: P178 Age: 41 Sex: M Admission Date: 06/28/2017 : 1975 Attending Physician: Joe Post M.D. Primary Care Physician: Aramis Sorenson M.D. Consultation Date: 06/30/2017 CONSULTATION REPORT HISTORY OF PRESENT ILLNESS Tiera had an abnormal CBC result that showed hemoglobin of 12.2, hematocrit 39.6, white blood cells of 27.3 and platelets of 1,220,000. He also had a potassium of 5.7, sodium 132 and chloride of 99. 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 He was recommended to have followup with Dr. Sánchez; however, Tiera reports that he never received this diagnosis and did not have followup. He also does not recall the bone marrow biopsy that was done in January. He has no other complaints. PHYSICAL EXAMINATION CARDIAC: Regular rate and rhythm. No murmurs, gallops, or rubs. RESPIRATORY: Clear to auscultation bilaterally. LYMPH NODES: No lymphadenopathy found on exam. ASSESSMENT AND PLAN Myeloproliferative neoplasm. The results of the biopsy were discussed with Tiera and he understands that he needs further evaluation and treatment with Dr. Sánchez. Please call on Sunday morning to schedule a followup appointment with Dr. Sánchez prior to Tiera being discharged and give Tiera all information regarding his followup. I have also discussed this with him. He knows where the office is and knows that he does have to have a followup and he verbalizes understanding and agrees. Dictated by... Shelia Plata/sherif TD: 07/01/2017 03:19 JOB #: [id number] Unit #: [id number] #: [id number] Patient: TIERA WING CONSULTATION REPORT Page 1 of 1 X NEDA DELGADO APRN CONSULTATION REPORT
--- NOTE | ~2017-06-28 | PN ---
Unit #: [id number] #: [id number] Patient: TIERA WING [id number] [place] [address] [id number] MR#: [id number] NAME: TIEAR WING. ROOM: [facility] Age: 41 Sex: M Admission Date: 06/28/2017 : 1975 Attending Physician: Joe Post M.D. Admitting Physician: Joe Post M.D. Primary Care Physician: Aramis Sorenson M.D. [facility] PROGRESS NOTES DATE OF SERVICE 06/29/2017 DISCUSSION Mr. Mullen is a 41-year-old male seen on 06/30/2017. The patient reports that he is having a lot of problem with the pain, anxieties, and trouble sleeping. The patient reported having withdrawals from opiates and also reported that he was on Percocet. The patient anxious, nervous. Mood labile. Somewhat guarded, withdrawn, isolative. The patient received clonidine and Zofran. The patient complaining of painful legs, insomnia, nausea. Currently on detox protocol. The patient's labs were abnormal. That showed platelet count 1229, critical; potassium 4.1; HIV negative. CBC is remarkable for WBC 27.3. CMP: Sodium 132. Complete Review of Systems: Unremarkable. MENTAL STATUS EXAMINATION General Appearance: The patient dressed casually. Attention span, concentration: Fair. Oriented in place and person. Mood and affect labile. Speech: Monotone. Thought process: [place]. The patient denied any thoughts of harming self or others. Recent and remote memory: Poor. Insight and judgment: Poor. DIAGNOSES 1. Opiate use disorder, severe. 2. Alcohol use disorder, severe. 3. Cannabis abuse disorder, moderate. 4. History of hepatitis C. ASSESSMENT/PLAN Advised to continue with current medication, and we will get a medical consult and consider transferring the patient to [facility] for further evaluation and treatment because of grossly abnormal labs and the patient not feeling well. Dictated by... Joe Post M.D. SZC/bzg Unit #: [id number] #: [id number] Patient: TIERA WING TD: 06/30/2017 17:38 JOB #: [id number] [facility] PROGRESS NOTES Page 1 of 1 X Joe Post MD PROGRESS NOTE
--- NOTE | ~2017-06-28 | DS ---
Unit #: [id number] #: [id number] Patient: TIERA WING [id number] [place] [address] [id number] I MR#: [id number] NAME: TIERA WING. ROOM: P178 Age: 42 Sex: M Admission Date: 06/28/2017 : 1975 Discharge Date: 07/02/2017 Attending Physician: Joe Post M.D. Primary Care Physician: Aramis Sorenson M.D. DISCHARGE SUMMARY REASON FOR ADMISSION Depression, detox. DIAGNOSTIC STUDIES LABORATORY DATA: Urine drugs screen positive for benzodiazepine and marijuana. HOSPITAL COURSE The patient was admitted to inpatient unit on June 28 and discharged on 07/02/2017. The patient was treated with group therapy, individual therapy, or medication management. The patient was responsive to treatment, showed improvement. Subsequently, the patient was discharged with a plan to follow up in outpatient program. DISCHARGE MEDICATIONS 1. Klonopin 1 mg at bedtime. The patient was given only 5-day supply. 2. Doxepin 100 mg at bedtime for sleep. 3. Seroquel 100 mg at bedtime for mood stabilization. 4. Neurontin 600 mg 4 times a day for chronic pain. DISCHARGE DIAGNOSES PSYCHIATRIC: Opioid use disorder, severe, F11.20 Cannabis use disorder, moderate, F12.20 Alcohol use disorder, severe, F10.20. Mood disorder not otherwise specified. SECONDARY: Deferred. MEDICAL: Hepatitis C. The patient also has a myeloproliferative neoplasm. STRESSORS: Psychosocial stressor. FOLLOWUP CARE The patient to follow up in outpatient clinic as per social media assistant. CONDITION ON DISCHARGE The patient pleasant, cooperative. Denied any psychotic symptom or any suicidal ideation. PROGNOSIS Guarded. DIET AND ACTIVITY As tolerated. Unit #: [id number] #: [id number] Patient: TIERA WING Dictated by... Yosi Plummer/deena TD: 07/05/2017 07:45 JOB #: [id number] DISCHARGE SUMMARY Page 1 of 1 X Joe Post MD X DISCHARGE SUMMARY
--- NOTE | ~2017-06-28 | PN ---
Unit #: [id number] #: [id number] Patient: TIERA WING [id number] [facility] [address] [place] [address] [id number] I MR#: [id number] NAME: TIERA WING. ROOM: [facility] Age: 41 Sex: M Admission Date: 06/28/2017 : 1975 Attending Physician: Joe Post M.D. Admitting Physician: Joe Post M.D. Primary Care Physician: Yosi Brown PROGRESS NOTES DATE 06/29/2017 DISCUSSION Patient interviewed. Chart reviewed. Obtained information from nursing staff. Patient was compliant, cooperative. Mood sad, dysphoric, flat affect, guarded. Patient still having withdrawal symptoms, anxious, nervous. Patient's vital signs are 98.4, 78, 18, blood pressure 125/72. Complete review of system unremarkable. MENTAL STATUS EXAMINATION General appearance, patient dressed casually. Attention span, concentration fair. Oriented in time, place and person. Mood and affect labile. Speech monotone. Thought process concrete. Patient denied any thoughts of harming self or others or any psychotic symptoms. Recent and remote memory poor. Insight and judgement poor. DIAGNOSES 1. Opiate use disorder, severe. 2. Alcohol use disorder, severe. 3. Cannabis abuse disorder, moderate. ASSESSMENT/PLAN Advised to continue with current medication and therapeutic protocol. If needed, consider further adjustment of medication. Dictated by... Yosi Plummer/marilynn TD: 06/29/2017 22:30 JOB #: [id number] Unit #: [id number] #: [id number] Patient: TIERA WING PROGRESS NOTES Page 1 of 1 X Joe Post MD PROGRESS NOTE
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
--- NOTE | ~2017-06-28 | PN ---
Unit #: [id number] #: [id number] Patient: TIERA WING [id number] [facility] [address] [place] [address] [id number] I MR#: [id number] NAME: TIERA WING. ROOM: 78 Age: 41 Sex: M Admission Date: 06/28/2017 : 1975 Attending Physician: Joe Post M.D. Admitting Physician: Joe Post M.D. Primary Care Physician: Yosi Brown PROGRESS NOTES DATE 07/01/2017 DISCUSSION Mr. Mullen is a 41-year-old, male who was seen on 07/01/2017. Patient seemed somewhat anxious, nervous, reported having problems with his sleep. The patient's labs were abnormal. Hemoglobin 12.2, hematocrit 39.6, platelet 1229, potassium 5.7, sodium 132. Patient was seen by the medical doctor and reported that patient was diagnosed with myeloproliferative neoplasm. Therefore, labs are abnormal and decided to continue with the treatment here. Complete review of system unremarkable. MENTAL STATUS EXAMINATION General appearance, patient dressed casually. Attention span and concentration fair. Oriented to time, place and person. Mood and affect sad, dysphoric, anxious. Speech regular rate. Thought process goal directed. Patient denied any suicidal or homicidal ideation or any psychotic symptom. Recent and remote memory poor. Insight and judgement poor. DIAGNOSES 1. Opioid use disorder severe. 2. Alcohol use disorder severe. 3. Cannabis abuse disorder moderate. 4. History of hepatitis C. 5. Myeloproliferative neoplasm. ASSESSMENT/PLAN Advise to continue with current treatment and advise to discontinue trazodone and replace with the doxepin 100 mg at bedtime and Seroquel 100 mg at bedtime with a plan to consider discharge next week and followup in the outpatient program. Dictated by... Yosi Plummer/shirlene TD: 07/02/2017 04:35 Unit #: [id number] #: [id number] Patient: TIERA WING JOB #: [id number] [facility] PROGRESS NOTES Page 1 of 1 X Joe Post MD X PROGRESS NOTE
--- NOTE | ~2017-06-28 | PA ---
Unit #: [id number] #: [id number] Patient: TIERA WING [id number] [facility] [address] [place] [address] [id number] I MR#: [id number] NAME: TIERA WING. ROOM: P178 Age: 41 Sex: M Admission Date: 06/28/2017 : 1975 Date of Assessment: Attending Physician: Joe Post M.D. Admitting Physician: Joe Post M.D. Primary Care Physician: Aramis Sorenson M.D. PSYCHIATRIC ASSESSMENT INFORMANTS The patient reliability, fair; chart reliability, good. CHIEF COMPLAINT Opiate abuse, alcohol abuse, and marijuana abuse. HISTORY OF PRESENT ILLNESS Tiera is a 41-year-old male, presented with the above-mentioned complaint. The patient reported expressing acute withdrawal symptoms, currently COWS score 23, and has a CIWA score of 13. The patient's BAL level was 0.198. The patient has a runny nose, bone and joint aches, anxiety, nausea, vomiting, tremors. The patient is very agitated, making assessment difficult. The patient reported drank 2 beers earlier. The patient denied any suicidal or homicidal ideation. Denied any psychotic symptom. The patient needing inpatient admission at this time for psychiatric stabilization. The patient reported tobacco use, half pack a day; alcohol, age of onset 15; marijuana, age of onset 15; opioid, age of onset 36. The patient reported daily using 10 mg of Percocet, very agitated, history of blackout, HIV, hepatitis, withdrawal symptom, IV drug use, abdominal cramping, muscle cramping, irritability, vomiting, needing inpatient admission at this time for psychiatric stabilization. PAST PSYCHIATRIC HISTORY Remarkable for history of inpatient [facility] at [facility]. FAMILY HISTORY AND SOCIAL HISTORY The patient has a poor support system. No history of abuse. No legal charges. MEDICAL HISTORY Remarkable for history of hepatitis C. Musculoskeletal; muscle strength and tone, no atrophy or abnormal movement. Gait normal. MEDICATION HISTORY None. ALLERGIES No known drug allergies. SUBSTANCE ABUSE HISTORY Please see above. REVIEW OF SYSTEMS Unit #: [id number] #: [id number] Patient: TIERA WING HEENT: Eyes, clear. Ears, nose, mouth, and throat; clear. CARDIOVASCULAR: Unremarkable. RESPIRATORY: Unremarkable. GI: Unremarkable. : Unremarkable. SKIN: Unremarkable. LYMPH NODE: Unremarkable. NEUROLOGIC: Unremarkable. ENDOCRINE: Unremarkable. HEMATOLOGIC: Unremarkable. ALLERGIC/IMMUNOLOGIC: Unremarkable. MUSCULOSKELETAL: Muscle strength and tone, no atrophy or abnormal movement. Gait normal. MENTAL STATUS EXAMINATION CONSTITUTIONAL: Measurement of vital signs; temperature 97.7, pulse 58, respirations 20, blood pressure 124/71, height 5 feet 8 inches, weight 130 pounds. GENERAL APPEARANCE: The patient dressed casually. The patient did not show any facial deformity. MUSCULOSKELETAL: Please see above. PSYCHIATRIC EXAMINATION Description of speech; regular rate, normal volume, normal articulation, coherent. Description of thought process, goal directed. Description of association, intact. Description of abnormal psychotic thinking; the patient denied any hallucination or delusions, but mood lability, withdrawal symptoms. Description of the patient's judgment, concerning everyday activity, poor. Social situation, poor. Concerning psychiatric condition, poor. Complete mental status examination; oriented in time, place, and person. Recent and remote memory, fair. Attention span and concentration, fair. Language, able to name object and repeat phrases. Fund of knowledge, aware of current event and passive vocabulary intact. Mood and affect, sad and dysphoric. Insight and judgment, fair to poor. ASSETS AND LIABILITIES Assets; the patient is articulate, able to take care of his ADL. Liability; history of substance abuse and depression. ADMITTING DIAGNOSES Psychiatric: Opioid use disorder, severe, F11.20; cannabis abuse disorder, moderate, F12.20; alcohol use disorder, severe, F10.20. Secondary diagnosis: Deferred. Medical diagnosis: Hepatitis C. Stressors: Psychosocial stressors. PSYCHIATRIC PLAN AND TREATMENT GOAL AND DISCHARGE PLAN 1. Advised to admit the patient on the inpatient unit. Provide safe, supportive, and structured environment. 2. Ordered labs; CBC, CMP, UA, and UDS. 3. Detox protocol and detox monitoring. The patient to attend all the programing group therapy, individual therapy, chemical dependency group. 4. Treatment goal; to attain euthymic mood, gain insight into his Unit #: [id number] #: [id number] Patient: TIERA WING Jose Luis problem, and learn coping skills. 5. Discharge plan; plan to stabilize the patient and consider followup in outpatient program. ESTIMATED LENGTH OF STAY 5 days. Dictated by... Yosi Plummer/sherif TD: 06/29/2017 19:59 JOB #: [id number] PSYCHIATRIC ASSESSMENT Page 1 of 1 X Joe Post MD PSYCHIATRIC ASSESSMENT
[2017-06-29 09:56] LABS: ALBUMIN SERUM 3.4 g/dL (3.5-5.0); BILIRUBIN,TOTAL 0.7 mg/dL (0.2-2.0); BUN/CREATININE RATIO 18.75; CALCIUM SERUM 8.9 mg/dL (8.4-10.2); CREATININE SERUM 0.8 mg/dL (0.6-1.4); GLOM FILT RATE Estimated 110.2 mL/min (>60); PROTEIN TOTAL SERUM 7.1 g/dL (6.0-8.3)
[2017-06-29 10:00] LABS: POTASSIUM 5.7 mmol/L (3.5-5.1)
[2017-06-29 10:14] LABS: BASOPHIL# 0.4 X10e3 (0-0.3); BASOPHIL% 1.5 % (0-2.5); EOSINOPHIL% 0.1 % (0.0-7.0); HEMATOCRIT 39.6 % (38.0-50.0); HEMOGLOBIN 12.2 gm/dL (13.0-16.0); LYMPHOCYTE# 2.6 X10e3 (1.0-3.5); LYMPHOCYTE% 9.5 % (17.0-45.0); MEAN CELL VOLUME 69.9 FL (83-96); MEAN CORPUSCULAR HEMOGLOBIN 21.5 PG (28-34); MEAN CORPUSCULAR HGB CONC 30.7 g/dL (30-36); MEAN PLATELET VOLUME 8.7 FL (6.5-11.5); MONOCYTE# 1.3 X10e3 (0-1.0); MONOCYTE% 4.8 % (3.0-12.0); NEUTROPHIL# 22.9 X10e3 (1.5-7.1); NEUTROPHIL% 84.1 % (40-75); RED BLOOD COUNT 5.66 X10e (3.90-5.60); WHITE BLOOD COUNT 27.3 X10e3 (4.0-10.5)
[2017-06-29 10:24] LABS: DIFF IND YES; PLATELET COUNT 1220 X10e3 (140-420)
[2017-06-29 10:33] LABS: ANISOCYTOSIS SL
[2017-06-29 10:34] LABS: POIKILOCYTOSIS SL; TARGET CELLS MOD
[2017-06-29 10:35] LABS: OVALOCYTES PRESENT; PLATELET ESTIMATE INCREASED (NORMAL)
[2017-06-30 12:26] LABS: BASOPHIL# 0.2 X10e3 (0-0.3); BASOPHIL% 0.6 % (0-2.5); EOSINOPHIL# 0.1 X10e3 (0-0.7); EOSINOPHIL% 0.3 % (0.0-7.0); HEMATOCRIT 37.9 % (38.0-50.0); HEMOGLOBIN 11.7 gm/dL (13.0-16.0); LYMPHOCYTE# 5.6 X10e3 (1.0-3.5); LYMPHOCYTE% 17.4 % (17.0-45.0); MEAN CELL VOLUME 69.8 FL (83-96); MEAN CORPUSCULAR HEMOGLOBIN 21.5 PG (28-34); MEAN CORPUSCULAR HGB CONC 30.8 g/dL (30-36); MEAN PLATELET VOLUME 8.9 FL (6.5-11.5); MONOCYTE# 2.3 X10e3 (0-1.0); NEUTROPHIL# 24.2 X10e3 (1.5-7.1); NEUTROPHIL% 74.7 % (40-75); RED BLOOD COUNT 5.43 X10e (3.90-5.60); RED CELL DISTRIBUTION WIDTH 20.2 % (11.0-15.5); WHITE BLOOD COUNT 32.4 X10e3 (4.0-10.5)
[2017-06-30 12:29] LABS: PLATELET COUNT 1171 X10e3 (140-420)
[2017-06-30 12:30] LABS: DIFF IND YES
[2017-06-30 12:53] LABS: ANISOCYTOSIS MOD; PLATELET ESTIMATE INCREASED (NORMAL); TARGET CELLS MOD
[2017-06-30 12:54] LABS: BURR CELLS PRESENT; HYPOCHROMIA MOD; MICROCYTOSIS MOD; POIKILOCYTOSIS MOD
[2017-06-30 12:55] LABS: SCHISTOCYTES PRESENT
[2017-06-30 13:01] LABS: URINE APPEARANCE CLEAR; URINE BILIRUBIN NEG (NEG); URINE BLOOD NEG (NEG); URINE COLOR YELLOW; URINE GLUCOSE NEG (NEG); URINE KETONE NEG (NEG); URINE LEUKOCYTE ESTERASE NEG (NEG); URINE NITRATE NEG (NEG); URINE PROTEIN TRACE (NEG); URINE SPECIFIC GRAVITY 1.022 (1.003-1.035); URINE UROBILINOGEN 0.2 MG/DL (NEG)
[2017-06-30 14:26] LABS: AMPHETAMINE NEG (NEG); BARBITURATES NEG (NEG); BENZODIAZEPINES POS (NEG); COCAINE NEG (NEG); MARIJUANA POS (NEG); OPIATES NEG (NEG); TRICYCLIC ANTIDEPRESSANTS NEG (NEG); U METHADONE NEG (NEG)
== END 2017-07-02 13:15 | DRG 897 ==
LOC: P1E 16:27
PROVIDERS: Psychiatry & Neurology Psychiatry
PROC: HZ2ZZZZ Detoxification Services for Substance Abuse Treatment (ICD-10-PCS; principal; 2017-06-28)
DX: F11.20 Opioid dependence, uncomplicated (principal); C94.6 Myelodysplastic disease, not elsewhere classified; F12.20 Cannabis dependence, uncomplicated; F10.20 Alcohol dependence, uncomplicated; Z86.19 Personal history of other infectious and parasitic diseases; F17.200 Nicotine dependence, unspecified, uncomplicated
CPT/HCPCS: 80053; 80307; 81003; 84132; 85025; 85049; 86592; 87806; J2550

== ENCOUNTER 2017-07-13 20:23 | Emergency (ER) | payer OTHER ==
[~2017-07-13] VITALS: Ht 172.7 cm; Wt 63.5 kg
--- NOTE | ~2017-07-13 | CR156 ---
[facility] A Service of [facility] & [facility] RADIOLOGY TEXT RESULTS PATIENT: TIERA WING LOCATION: [facility] : 74 UNIT #: [id number] AGE: [address]: Nat Parks SEX: M ORDER DR: [id number] [facility] [address] [facility] [place], [place] [address] [id number] E MR#: [id number] Acc #: [id number] NAME: TIERA WING. : 1975 SEX: M STUDY DATE/TIME: 07/13/2017 21:27 UNIT: [facility] ROOM: STUDY DESCRIPTION: CR Humerus Min 2 View Lt Attending Physician: Nat Parks Pa-C Ordering Physician: Nat Parks Pa-C Primary Care Physician: Aramis Sorenson M.D. MEDICAL IMAGING REPORT This report is preliminary unless electronic signature is present EXAM Left humerus HISTORY Arm pain after falling down a hill today. TECHNIQUE 2 views of the humerus were obtained. Comparison with the CT of the same area on 01/14/2017 FINDINGS Postoperative changes of open reduction and internal fixation of a mid humeral fracture are noted. There is a pseudoarthrosis with nonunion or malunion of the fracture. Since the previous examination bony hypertrophy across this area has increased. One of the 2 screws through the upper humerus has fractured. This is a new finding since the CT scan. No acute fractures are noted in the bone. IMPRESSION Malunion or nonunion of a midshaft humeral fracture status post open reduction and internal fixation. Bony hypertrophy along the pseudoarthrosis has increased since the CT scan of 01/14/2017. There are no acute fractures in the bone. There is a new fracture of the uppermost humeral screw through the humeral neck when compared to the CT scan in December. Dictated by... Saman Kaur M.D. THIS IS AN ELECTRONICALLY VERIFIED REPORT Saman Kaur M.D. at 07/16/2017 7:14 AM CAMDENF/tomi [facility] A Service of [facility] & [facility] RADIOLOGY TEXT RESULTS PATIENT: TIERA WING LOCATION: [facility] : 73 UNIT #: [id number] AGE: [address]: Nat Parks SEX: M ORDER DR: TD: 07/15/2017 00:48 JOB #: [id number] MEDICAL IMAGING REPORT Page 1 of 1 COPY
--- NOTE | ~2017-07-13 | CR169 ---
[facility] A Service of [facility] & [facility] RADIOLOGY TEXT RESULTS PATIENT: TIERA WING LOCATION: [facility] : 73 UNIT #: [id number] AGE: [address]: Nat Parks SEX: M ORDER DR: [id number] [facility] [address] [facility]. [place], [place] [address] [id number] E MR#: [id number] Acc #: [id number] NAME: TIERA WING. : 1975 SEX: M STUDY DATE/TIME: 07/13/2017 21:28 UNIT: [facility] ROOM: STUDY DESCRIPTION: CR Knee 2 Views Lt Attending Physician: Nat Parks Pa-C Ordering Physician: Nat Parks Pa-C Primary Care Physician: Aramis Sorenson M.D. MEDICAL IMAGING REPORT This report is preliminary unless electronic signature is present EXAM Left knee. HISTORY Knee pain after falling down a hill today. TECHNIQUE Two views of the knee were obtained. FINDINGS Postoperative changes of previous tibial nail placement are noted. There is no evidence of fracture, effusion or joint space narrowing. No acute bony abnormalities are seen. IMPRESSION Postoperative changes in the tibia. Otherwise negative knee. Dictated by... Saman Kaur M.D. THIS IS AN ELECTRONICALLY VERIFIED REPORT Saman Kaur M.D. at 07/16/2017 7:14 AM REJI/terrence TD: 07/15/2017 00:02 JOB #: [id number] MEDICAL IMAGING REPORT Page 1 of 1 COPY
--- NOTE | ~2017-07-13 | CR20 ---
[facility] A Service of [facility] & [facility] RADIOLOGY TEXT RESULTS PATIENT: TIERA WING LOCATION: [facility] : 73 UNIT #: [id number] AGE: [address]: Nat Parks SEX: M ORDER DR: [id number] [facility] [address] [facility] [place], [place] [address] [id number] E MR#: [id number] Acc #: [id number] NAME: TIERA WING. : 1975 SEX: M STUDY DATE/TIME: 07/13/2017 21:30 UNIT: [facility] ROOM: STUDY DESCRIPTION: CR Ankle Min 3 Views Lt Attending Physician: Nat Parks Pa-C Ordering Physician: Nat Parks Pa-C Primary Care Physician: Aramis Sorenson M.D. MEDICAL IMAGING REPORT This report is preliminary unless electronic signature is present EXAM Left ankle HISTORY Ankle pain after falling down a hill today. TECHNIQUE 3 views of the ankle were obtained. FINDINGS Postoperative changes of open reduction and internal fixation of the ankle are noted involving both the tibia and distal fibula. Fractures appear healed. No hardware complications noted. No acute fractures are seen. The ankle mortise is symmetric. IMPRESSION No acute fractures. Satisfactory appearance to hardware over the lower leg. Dictated by... Saman Kaur M.D. THIS IS AN ELECTRONICALLY VERIFIED REPORT Saman Kaur M.D. at 07/16/2017 7:14 AM RLF/tomi TD: 07/15/2017 00:51 JOB #: [id number] MEDICAL IMAGING REPORT Page 1 of 1 COPY
[2017-07-14] MEDS ORDERED: KLONOPIN1 MG PO (12:53)
[2017-07-14] MEDS ORDERED: DOXEPIN HCL100 MG PO (12:53)
[2017-07-14] MEDS ORDERED: VISTARIL50 MG PO ×2 (12:54→16:51)
[2017-07-14] MEDS ORDERED: SEROQUEL400 MG DOB (12:55)
[2017-07-14] MEDS ORDERED: NEURONTIN600 MG DOB (12:55)
[2017-07-14] MEDS ORDERED: HYDREA500 MG PO (12:55)
[2017-07-14] MEDS ORDERED: GABAPENTIN400 MG PO (16:50)
[2017-07-14] MEDS ORDERED: HYDROXYZINE HCL50 MG PO (16:53)
[2017-07-14] MEDS ORDERED: IBUPROFEN800 MG PO (16:53)
[2017-07-14] MEDS ORDERED: SEROQUEL100 MG PO (16:54)
[2017-07-14] MEDS ORDERED: GABAPENTIN600 MG PO (16:56)
== END 2017-07-13 22:45 | disposition home or self-care (01) ==
LOC: CED 20:23 → CFTX 20:23
DX: S90.02XA Contusion of left ankle, initial encounter (principal); S80.02XA Contusion of left knee, initial encounter; F31.9 Bipolar disorder, unspecified; F17.210 Nicotine dependence, cigarettes, uncomplicated; Z79.899 Other long term (current) drug therapy; W01.0XXA Fall on same level from slipping, tripping and stumbling without subsequent striking against object, initial encounter; Y92.830 Public park as the place of occurrence of the external cause
CPT/HCPCS: 36415; 36430; 73060; 73560; 73610; 96361; 96365; 96366; 96368; 96376; 99284; P9016

== ENCOUNTER 2017-07-14 06:45 | Inpatient (IN) | payer OTHER ==
[~2017-07-14] VITALS: Ht 172.7 cm; Wt 60.2 kg
--- NOTE | ~2017-07-14 | EKG ---
PATIENT: TIERA WING UNIT #: [id number] Ventricular Rate: 91 BPM Atrial Rate: 91 BPM P-R Interval: 150 ms QRS Duration: 78 ms Q-T Interval: 388 ms QTC Calculation(Bezet): 477 ms P [place]: 75 degrees Calculated R [place]: 56 degrees Calculated T [place]: 53 degrees Diagnosis Line: Normal sinus rhythm Diagnosis Line: Normal ECG Diagnosis Line: When compared with ECG of 13-JAN-2017 00:31, Diagnosis Line: No significant change was found Diagnosis Line: Confirmed by MAGUE DOTSON MD ([id number]) on Diagnosis Line: 07/16/2017 4:48:16 PM INTERPRETING MD: PASHA
--- NOTE | ~2017-07-14 | CT127 ---
[facility] A Service of [facility] & [facility] RADIOLOGY TEXT RESULTS PATIENT: TIERA WING LOCATION: [facility] 317-01 : 73 UNIT #: [id number] AGE: [address]: Jarrod Crisostomo MD SEX: M ORDER DR: [id number] [facility] [address]. [place], [place] [address] [id number] I MR#: [id number] Acc #: [id number] NAME: TIERA WING. : 1975 SEX: M STUDY DATE/TIME: 07/15/2017 13:53 UNIT: [address] ROOM: [facility] STUDY DESCRIPTION: CT Upper Ext Lt Wo Cont Attending Physician: Jarrod Crisostomo M.D. Ordering Physician: Yong Bonilla M.D. Primary Care Physician: Aramis Sorenson M.D. MEDICAL IMAGING REPORT This report is preliminary unless electronic signature is present EXAM CT left upper extremity without contrast 07/15/2017 HISTORY 42-year-old male with left shoulder pain status post fall yesterday. History of prior left shoulder surgery. Order requests evaluation shaft of humerus and scapula for nonunion fracture. COMPARISON: Left humerus x-rays 07/13/2017. CT left upper extremity 01/14/2017. TECHNIQUE Helical scan performed through the left humerus without IV contrast. Multiplanar reformatted images. Metal reduction techniques were maximized. The CT exam was performed with one or more of the following radiation dose reduction techniques: automatic exposure control, adjustment of mA and/or kV according to patient size, and iterative reconstruction. FINDINGS There is again noted and the intramedullary humeral nail spanning a nonunion transverse fracture through the mid shaft of the humerus. No evidence of osseous bridging across the fracture line. No evidence of hardware failure or loosening. There are two proximal interlocking screws and 1 distal interlocking screw. The left shoulder remains normally located. No evidence of a scapular fracture. There is some mild heterotopic ossification along the anterior aspect of the distal clavicle. Acromioclavicular joint appears otherwise within expected limits. Multiple old left-sided rib fractures. No glenohumeral effusion. Visualized soft tissues are unremarkable. Scanning through the left lung STS. [facility] A Service of [facility] & [facility] RADIOLOGY TEXT RESULTS PATIENT: TIERA WING LOCATION: [facility] 317-01 : [birth year] UNIT #: [id number] AGE: [address]: Jarrod Crisostomo MD SEX: M ORDER DR: field is clear. IMPRESSION 1. ORIF of the left humerus spanning a nonunion fracture of the mid humeral shaft. No evidence of significant osseous bridging across the fracture line. No evidence of hardware failure or loosening. 2. No evidence of a scapular fracture. 3. Mild heterotopic ossification along the anterior aspect of the distal clavicle, unchanged from 01/14/2017. 4. Multiple old left-sided rib fractures. 5. No evidence of acute fracture or dislocation. Dictated by... Gerson Alvarez M.D. THIS IS AN ELECTRONICALLY VERIFIED REPORT Gerson Alvarez M.D. at 07/16/2017 10:43 AM PRAVEEN/damir TD: 07/16/2017 10:21 JOB #: [id number] MEDICAL IMAGING REPORT Page 1 of 1 COPY
--- NOTE | ~2017-07-14 | CO ---
Unit #: [id number] #: [id number] Patient: TIERA WING [id number] [address] [place], [place] [address] [id number] I MR#: [id number] NAME: TIERA WING. ROOM: 317 Age: 42 Sex: M Admission Date: 07/14/2017 : 1975 Attending Physician: Rafita Mcdowell M.D. Primary Care Physician: Aramis Sorenson M.D. Consultation Date: 07/15/2017 CONSULTATION REPORT REASON FOR CONSULTATION Left shoulder pain. HISTORY OF PRESENT ILLNESS Tiera is a 42-year-old male who was admitted to the hospital for reasons other than his shoulder and leg. The patient had a syncopal episode and peptic ulcer disease, needing an EGD performed with hemorrhage control on 07/14/2017. X-rays were taken of the left shoulder, humerus, and leg. He has a history of humerus fracture with intramedullary nail as well as a tibial distal shaft fracture with intramedullary nail. The leg was taken care of several years prior. He reports that the humerus was taken care of in 09/2016. He notes pain at the fracture site of the mid humerus, but his biggest issue is significant crepitus and pain in the scapulothoracic region. Symptoms are worse with overhead motion and is better at rest. He notes the pain to be constant. It does not seem to be improving. No other recent injuries or changes. PAST MEDICAL HISTORY 1. IV drug abuse. 2. History of peptic ulcer disease. 3. Hepatitis C. 4. Chronic pain. PAST SURGICAL HISTORY 1. Left humerus nail. 2. Left tibial nail. 3. Splenectomy. 4. EGD. SOCIAL HISTORY The patient smoked for the last 20 years. Admits to IV heroin use in the past, as well as other drugs. FAMILY HISTORY Noncontributory. ALLERGIES No known drug allergies. HOME MEDICATIONS 1. Klonopin. 2. Doxepin. 3. Hydroxyurea. 4. Hydroxyzine. Unit #: [id number] #: [id number] Patient: TIERA WING 5. Ibuprofen. 6. Seroquel. 7. Gabapentin. REVIEW OF SYSTEMS Positive for musculoskeletal pain. Positive for syncopal episode. The remainder of the review of systems is negative. PHYSICAL EXAMINATION GENERAL: The patient is alert and oriented for examination. No acute distress. VITALS: Temperature 97.7 degrees Fahrenheit, pulse 96, respiratory rate 18, 97% oxygen saturation on room air. Blood pressure 128/83. HEENT: Head is atraumatic, normocephalic. Extraocular movements are intact. Mucous membranes are moist. NECK: Cervical spine midline with no jugular venous distension. LUNGS: Breathing unlabored. Chest rises symmetric. HEART: Pulse regular rate and rhythm. ABDOMEN: Soft, nontender and nondistended. EXTREMITIES: No clubbing, cyanosis or edema of the extremities. Examination of the left upper extremity reveals some tenderness to palpation over the mid humerus. Palpable bony callous noted at the mid humerus. Near full elbow and wrist motion. Shoulder motion intact with crepitus over the scapulothoracic joint. Multiple well-healed scars. Strength 4/5. Normal motor and sensory exam. Hand warm and well perfused. Exam of the left lower extremity reveals well-healed scars. There is decreased ankle dorsiflexion noted. Mild tenderness to palpation over the distal tibia. DIAGNOSTIC STUDIES IMAGING: X-rays reviewed of the left humerus. There is a hypertrophic malunion or nonunion of the humeral shaft. It is stabilized with an intramedullary nail with single distal locking screw and to proximal locking screws. One of the proximal screws is broken. X-rays of the left leg revealed tibial nail and fibular hardware. Fracture is well healed. LABORATORY: Hemoglobin 8.7, white blood cell count 17.9, platelets 1,261. BMP normal. INR 1.0. 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 MILADY Mullen's current symptoms are chronic. He has some pain coming from the scapulothoracic joint. Will get a CT scan of the shoulder to better evaluate this. Will have this extend down the arm to better evaluate the humerus for nonunion as well. He will follow up in the office. Will likely order a bone stimulator. We may try a cortisone injection for the scapulothoracic joint depending on the findings. He will need pain management or other forms of therapy for the left leg, as there is no surgery indicated at this time. This was all discussed with the patient. We will get the CT scan and have him follow up in the office regarding this. Unit #: [id number] #: [id number] Patient: TIERA WING Dictated by... Yong Bonilla M.D. BD/gz TD: 07/15/2017 12:36 JOB #: [id number] CC: Yong Bonilla M.D. CONSULTATION REPORT Page 1 of 1 X X CONSULTATION REPORT
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
--- NOTE | ~2017-07-14 | OR ---
Unit #: [id number] #: [id number] Patient: TIERA WING [id number] [address] [place], [place] [address] [id number] I MR#: [id number] NAME: TIERA WING. ROOM: [facility] Date of Procedure: 07/14/2017 Admission Date: 07/14/2017 Surgeon: Charles Robins M.D. : 1975 Attending Physician: Rafita Mcdowell M.D. Primary Care Physician: Aramis Sorenson M.D. OPERATIVE REPORT PREOPERATIVE DIAGNOSES 1. Upper gastrointestinal bleed with history of melena. 2. Anemia of acute gastrointestinal blood loss. PROCEDURES PERFORMED 1. Upper gastrointestinal endoscopy with hemorrhage control. 2. Upper gastrointestinal endoscopy and biopsy. POSTOPERATIVE DIAGNOSES 1. The patient had 2 anterior duodenal ulcers in the duodenal bulb with active bleed. Hemostasis was achieved after injection of 1:10,000 epinephrine followed by application of heater probe. Excellent hemostasis was achieved. 2. Grade 1 to 2 distal erosive esophagitis. 3. Rest of examination up to third part of duodenum was normal. A biopsy was obtained from the antrum for CLOtest. RECOMMENDATIONS 1. The patient is being started on Protonix infusion after giving a bolus of 80 mg IV over 1 hour followed by continuous infusion at 8 mg/hour. 2. Clear liquid diet to be advanced to full liquid tomorrow. 3. Monitor hemoglobin and hematocrit and transfuse to keep the hemoglobin above 8. SEDATION USED MAC. DESCRIPTION OF PROCEDURE Following detailed explanation of the potential risks and complications of an upper endoscopy, namely perforation, bleeding, complication related to sedation, the patient was brought to GI lab and laid in the left lateral decubitus position. Lubricated tip of the Olympus video upper endoscope was passed through bite block into the proximal esophagus under direct vision. The entire esophageal mucosa was examined and the patient was noted to have grade 1 to 2 distal erosive esophagitis. The scope was then advanced into the gastric cavity and the latter was insufflated. Mucosa of the fundus, body, and antrum examined and appeared unremarkable. Pylorus was intubated with visualization of the duodenal bulb. The latter was noted to have 2 anterior duodenal ulcers with active bleed. Fresh blood was seen oozing from the edges of the ulcer. However, no distinct visible vessel was seen. The area was thoroughly washed with water and active bleeding was noted again. The second and third part of duodenum was normal. The attention was focused on the bleeding ulcers. Hemostasis Unit #: [id number] #: [id number] Patient: TIERA WING H was achieved after injection of 1:10,000 epinephrine followed by application of heater probe. Excellent coagulum was found and good hemostasis was achieved. The area was washed carefully for 2 to 3 minutes before withdrawing the scope. Photodocumentation was also obtained. Upon withdrawal and retroflexion, incisura, cardia, and greater curve were examined and biopsy was obtained from the antrum for CLOtest. The scope was then withdrawn into the distal esophagus. The entire esophageal mucosa was examined all the way up to pharynx. No additional findings noted. The patient tolerated the procedure without any postprocedure complications. Dictated by... Yosi Parmar/sherif TD: 07/15/2017 02:12 JOB #: [id number] CC: Simon Sethi M.D. OPERATIVE REPORT Page 1 of 1 X Charles Robins MD X PROCEDURE OPERATIVE NOTE
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
[2017-07-14 07:58] LABS: BASOPHIL# 0.3 X10e3 (0-0.3); BASOPHIL% 1.4 % (0-2.5); EOSINOPHIL# 0.4 X10e3 (0-0.7); HEMATOCRIT 21.9 % (38.0-50.0); LYMPHOCYTE# 5.9 X10e3 (1.0-3.5); LYMPHOCYTE% 32.1 % (17.0-45.0); MEAN CELL VOLUME 75.6 FL (83-96); MEAN CORPUSCULAR HEMOGLOBIN 23.3 PG (28-34); MEAN CORPUSCULAR HGB CONC 30.8 g/dL (30-36); MEAN PLATELET VOLUME 7.6 FL (6.5-11.5); MONOCYTE# 0.8 X10e3 (0-1.0); MONOCYTE% 4.4 % (3.0-12.0); NEUTROPHIL% 60.1 % (40-75); RED CELL DISTRIBUTION WIDTH 23.8 % (11.0-15.5); WHITE BLOOD COUNT 18.3 X10e3 (4.0-10.5)
[2017-07-14 08:03] LABS: HEMOGLOBIN 6.7 gm/dL (13.0-16.0)
[2017-07-14 08:06] LABS: DIFF IND YES; PLATELET COUNT 1318 X10e3 (140-420)
[2017-07-14 09:09] LABS: PARTIAL THROMBOPLASTIN TIME 34.2 SECONDS (23.5-31.3); PROTHROMBIN TIME (PATIENT) 10.7 SECONDS (10.0-11.7)
[2017-07-14 09:24] LABS: CALCIUM SERUM 8.2 mg/dL (8.4-10.2); CREATININE SERUM 0.8 mg/dL (0.6-1.4); GLOM FILT RATE Estimated 109.5 mL/min (>60); POTASSIUM 4.9 mmol/L (3.5-5.1)
[2017-07-14 09:27] LABS: URINE SOURCE CLEAN CATCH
[2017-07-14 09:40] LABS: URINE APPEARANCE CLEAR; URINE BILIRUBIN NEG (NEG); URINE BLOOD NEG (NEG); URINE COLOR YELLOW; URINE GLUCOSE NEG (NEG); URINE KETONE NEG (NEG); URINE LEUKOCYTE ESTERASE NEG (NEG); URINE NITRATE NEG (NEG); URINE PROTEIN NEG (NEG); URINE SPECIFIC GRAVITY 1.017 (1.003-1.035); URINE UROBILINOGEN 0.2 MG/DL (NEG)
[2017-07-14 10:00] LABS: AMPHETAMINE NEG (NEG); BARBITURATES NEG (NEG); BENZODIAZEPINES NEG (NEG); COCAINE POS (NEG); MARIJUANA POS (NEG); OPIATES POS (NEG); TRICYCLIC ANTIDEPRESSANTS POS (NEG); U METHADONE NEG (NEG)
[2017-07-14 10:15] LABS: NUCLEATED RED BLOOD CELL 2 /100 (0)
[2017-07-14 10:16] LABS: PLATELET ESTIMATE INCREASED (NORMAL); TOXIC GRANULATION SL
[2017-07-14 10:17] LABS: ACANTHOCYTES PRESENT; ELLIPTOCYTES PRESENT; HOWELL-JOLLY BODIES PRESENT; HYPERSEGMENTED POLYS PRESENT; POIKILOCYTOSIS MOD; SCHISTOCYTES PRESENT; TARGET CELLS MOD; VACUOLIZATION SL
[2017-07-14 10:18] LABS: PAPPENHEIMER BODIES PRESENT
[2017-07-14] MEDS ORDERED: KLONOPIN1 MG PO (12:53)
[2017-07-14] MEDS ORDERED: DOXEPIN HCL100 MG PO (12:53)
[2017-07-14] MEDS ORDERED: VISTARIL50 MG PO ×2 (12:54→16:51)
[2017-07-14] MEDS ORDERED: HYDREA500 MG PO (12:55)
[2017-07-14] MEDS ORDERED: SEROQUEL400 MG DOB (12:55)
[2017-07-14] MEDS ORDERED: NEURONTIN600 MG DOB (12:55)
[2017-07-14] MEDS ORDERED: GABAPENTIN400 MG PO (16:50)
[2017-07-14] MEDS ORDERED: IBUPROFEN800 MG PO (16:53)
[2017-07-14] MEDS ORDERED: HYDROXYZINE HCL50 MG PO (16:53)
[2017-07-14] MEDS ORDERED: SEROQUEL100 MG PO (16:54)
[2017-07-14] MEDS ORDERED: GABAPENTIN600 MG PO (16:56)
[2017-07-15 06:28] LABS: HEMATOCRIT 26.1 % (38.0-50.0); MEAN CELL VOLUME 76.8 FL (83-96); MEAN CORPUSCULAR HEMOGLOBIN 25.6 PG (28-34); MEAN CORPUSCULAR HGB CONC 33.3 g/dL (30-36); MEAN PLATELET VOLUME 7.7 FL (6.5-11.5); RED BLOOD COUNT 3.39 X10e (3.90-5.60); RED CELL DISTRIBUTION WIDTH 23.9 % (11.0-15.5); WHITE BLOOD COUNT 17.9 X10e3 (4.0-10.5)
[2017-07-15 06:31] LABS: ALBUMIN SERUM 2.9 g/dL (3.5-5.0); BILIRUBIN,TOTAL 1.2 mg/dL (0.2-2.0); BUN/CREATININE RATIO 18.88; CALCIUM SERUM 8.5 mg/dL (8.4-10.2); CREATININE SERUM 0.9 mg/dL (0.6-1.4); GLOM FILT RATE Estimated 104.2 mL/min (>60); HEMOGLOBIN 8.7 gm/dL (13.0-16.0); POTASSIUM 3.9 mmol/L (3.5-5.1); PROTEIN TOTAL SERUM 6.2 g/dL (6.0-8.3)
[2017-07-16 05:15] LABS: HEMOGLOBIN 8.9 gm/dL (13.0-16.0); MEAN CELL VOLUME 78.4 FL (83-96); MEAN CORPUSCULAR HEMOGLOBIN 25.9 PG (28-34); MEAN CORPUSCULAR HGB CONC 33.1 g/dL (30-36); MEAN PLATELET VOLUME 7.5 FL (6.5-11.5); RED BLOOD COUNT 3.44 X10e (3.90-5.60); RED CELL DISTRIBUTION WIDTH 24.5 % (11.0-15.5); WHITE BLOOD COUNT 18.5 X10e3 (4.0-10.5)
[2017-07-16 06:01] LABS: ALBUMIN SERUM 2.9 g/dL (3.5-5.0); BILIRUBIN,TOTAL 0.7 mg/dL (0.2-2.0); BUN/CREATININE RATIO 13.63; CALCIUM SERUM 8.4 mg/dL (8.4-10.2); CREATININE SERUM 1.1 mg/dL (0.6-1.4); GLOM FILT RATE Estimated 81.8 mL/min (>60); POTASSIUM 3.8 mmol/L (3.5-5.1); PROTEIN TOTAL SERUM 5.9 g/dL (6.0-8.3)
[2017-07-16] MEDS ORDERED: OMEPRAZOLE40 M1 PO (16:35)
== END 2017-07-16 18:39 | disposition home or self-care (01) | DRG 378 ==
LOC: CED 06:45 → CEDOF 10:10 → CED 10:29 → CEDOF 10:29 → C3A PCU 13:21 → CEDOF 13:21 → C3A PCU 07-15 06:48
PROVIDERS: Emergency Medicine; Internal Medicine; Internal Medicine Gastroenterology
PROC: 0W3P8ZZ Control Bleeding in Gastrointestinal Tract, Via Natural or Artificial Opening Endoscopic (ICD-10-PCS; principal; 2017-07-14 15:14)
PROC: 0DB78ZX Excision of Stomach, Pylorus, Via Natural or Artificial Opening Endoscopic, Diagnostic (ICD-10-PCS; 2017-07-14 15:14)
PROC: 30233N1 Transfusion of Nonautologous Red Blood Cells into Peripheral Vein, Percutaneous Approach (ICD-10-PCS; 2017-07-14 15:14)
DX: K26.4 Chronic or unspecified duodenal ulcer with hemorrhage (principal); D62 Acute posthemorrhagic anemia; C94.6 Myelodysplastic disease, not elsewhere classified; K22.10 Ulcer of esophagus without bleeding; S42.302P Unspecified fracture of shaft of humerus, left arm, subsequent encounter for fracture with malunion; D47.3 Essential (hemorrhagic) thrombocythemia; R55 Syncope and collapse; Z86.19 Personal history of other infectious and parasitic diseases; F17.200 Nicotine dependence, unspecified, uncomplicated; X58.XXXD Exposure to other specified factors, subsequent encounter; M25.572 Pain in left ankle and joints of left foot; F19.10 Other psychoactive substance abuse, uncomplicated
CPT/HCPCS: 36415; 73200; 80048; 80053; 80061; 80307; 81003; 82150; 85025; 85027; 85610; 85730; 86850; 86900; 86901; 86923; 87077; 93005; 96361; 96374; 99285; C9113; J0171; J2250; J2270; P9016

== ENCOUNTER 2017-07-29 04:34 | Emergency (ER) | payer OTHER ==
[~2017-07-29] VITALS: Ht 172.7 cm; Wt 65.8 kg
[~2017-07-29 04:34] MED LIST changes: +DOXEPIN HCL100 MG PO; +GABAPENTIN400 MG PO; +GABAPENTIN600 MG PO; +HYDREA500 MG PO; +HYDROXYZINE HCL50 MG PO; +IBUPROFEN800 MG PO; +KLONOPIN1 MG PO; +NEURONTIN600 MG DOB; +OMEPRAZOLE40 M1 PO; +SEROQUEL100 MG PO; +SEROQUEL400 MG DOB; +VISTARIL50 MG PO
[2017-07-30] MEDS ORDERED: CLARITIN10 M3 PO (00:35)
== END 2017-07-29 05:45 | disposition home or self-care (01) ==
LOC: CED 04:34
DX: L02.414 Cutaneous abscess of left upper limb (principal); L02.413 Cutaneous abscess of right upper limb; F17.200 Nicotine dependence, unspecified, uncomplicated; F31.9 Bipolar disorder, unspecified
CPT/HCPCS: 10060; 99283

== ENCOUNTER 2017-07-29 21:43 | Inpatient (IN) | payer OTHER ==
--- NOTE | ~2017-07-29 | CR72 ---
[facility] A Service of [facility] & [facility] RADIOLOGY TEXT RESULTS PATIENT: TIERA WING LOCATION: [facility] [id number] : [birth year] UNIT #: [id number] AGE: [address]: Magnolia Ingram MD SEX: M ORDER DR: [id number] [facility] [address] [place], [place] [address] [id number] I MR#: [id number] Acc #: [id number] NAME: TIERA WING. : 1975 SEX: M STUDY DATE/TIME: 07/29/2017 22:48 UNIT: [facility] ROOM: 96737 STUDY DESCRIPTION: CR Chest Single View Portable Attending Physician: Magnolia Ingram M.D. Ordering Physician: Felisha Field M.D. Primary Care Physician: Aramis Sorenson M.D. MEDICAL IMAGING REPORT This report is preliminary unless electronic signature is present EXAM AP radiograph of the chest HISTORY Short of air 2 days duration. Dizziness after drinking. Short of air, cough, smoker 15 years. FINDINGS AP radiograph of the chest is presented. Comparison 07/16/2010 and left humerus series 07/13/2011. Old healed left anterolateral second, third and fourth rib fractures. Patient is status post a left humeral fracture with open reduction internal fixation. 1 of the proximal transverse fixation screws is fractured. This is unchanged from prior humerus series. There is no new acute bony abnormality. The heart is ajkrih-[id number] limits of normal in size. The lungs are moderately well inflated. There is mild vascular prominence which may reflect the lung volumes or borderline vascular congestion. There is no tima pulmonary edema, pleural effusion or pneumothorax. There is linear scarring in the left mid lung zone. Faintly visualized nodular densities at the bilateral lung bases favored to be nipple shadow artifact based upon location but they are not clearly evident on prior chest x-ray in 2009. Patient has a significant history of tobacco usage. To exclude true developing pulmonary nodules, repeat PA and lateral radiographs of the chest with nipple markers in place recommended. If nipple shadow artifact not confirmed then CT of chest would be warranted for further assessment. Visualized upper abdomen unremarkable. Dictated by... Deshaun Granado M.D. THIS IS AN ELECTRONICALLY VERIFIED REPORT [facility]. [facility] A Service of [facility] RADIOLOGY TEXT RESULTS PATIENT: TIERA WING LOCATION: [facility] [id number] : [birth year] UNIT #: [id number] AGE: [address]: Magnolia Ingram MD SEX: M ORDER DR: Deshaun Granado M.D. at 07/31/2017 4:59 PM ANAND/jazmín TD: 07/30/2017 09:52 JOB #: [id number] MEDICAL IMAGING REPORT Page 1 of 1 COPY
--- NOTE | ~2017-07-29 | EKG ---
PATIENT: TIERA WING UNIT #: [id number] Ventricular Rate: 90 BPM Atrial Rate: 90 BPM P-R Interval: 152 ms QRS Duration: 82 ms Q-T Interval: 404 ms QTC Calculation(Bezet): 494 ms P Upper Tract: 71 degrees Calculated R Upper Tract: 58 degrees Calculated T Upper Tract: 51 degrees Diagnosis Line: Normal sinus rhythm Diagnosis Line: Prolonged QT Diagnosis Line: Abnormal ECG Diagnosis Line: No previous ECGs available Diagnosis Line: Confirmed by KAYLA ROMAN MD ([id number]) on Diagnosis Line: 07/30/2017 8:43:15 AM INTERPRETING MD: JESSIE DUKE
[2017-07-29 23:11] LABS: BASOPHIL# 0.1 X10e3 (0-0.3); BASOPHIL% 1.2 % (0-2.5); EOSINOPHIL# 0.3 X10e3 (0-0.7); LYMPHOCYTE# 4.1 X10e3 (1.0-3.5); MEAN CELL VOLUME 82.4 FL (83-96); MEAN CORPUSCULAR HEMOGLOBIN 26.2 PG (28-34); MEAN CORPUSCULAR HGB CONC 31.8 g/dL (30-36); MEAN PLATELET VOLUME 7.7 FL (6.5-11.5); MONOCYTE# 0.7 X10e3 (0-1.0); MONOCYTE% 9.3 % (3.0-12.0); NEUTROPHIL# 2.7 X10e3 (1.5-7.1); NEUTROPHIL% 33.5 % (40-75); PLATELET COUNT 567 X10e3 (140-420); RED BLOOD COUNT 2.19 X10e (3.90-5.60); WHITE BLOOD COUNT 7.9 X10e3 (4.0-10.5)
[2017-07-29 23:17] LABS: HEMOGLOBIN 5.7 gm/dL (13.0-16.0)
[2017-07-29 23:18] LABS: DIFF IND YES
[2017-07-29 23:27] LABS: PROTHROMBIN TIME (PATIENT) 10.6 SECONDS (10.0-11.7)
[2017-07-29 23:34] LABS: ALBUMIN SERUM 2.9 g/dL (3.5-5.0); BILIRUBIN, DIRECT 0.1 mg/dL (0.0-0.2); BILIRUBIN,INDIRECT 0.2 mg/dL (0.0-0.9); BILIRUBIN,TOTAL 0.3 mg/dL (0.2-2.0); BUN/CREATININE RATIO 7.5; CALCIUM SERUM 7.7 mg/dL (8.4-10.2); CREATININE SERUM 0.8 mg/dL (0.6-1.4); GLOM FILT RATE Estimated 109.5 mL/min (>60); POTASSIUM 3.2 mmol/L (3.5-5.1); PROTEIN TOTAL SERUM 6.5 g/dL (6.0-8.3)
[2017-07-29 23:44] LABS: PLATELET ESTIMATE INCREASED (NORMAL)
[2017-07-29 23:45] LABS: ACANTHOCYTES PRESENT; ANISOCYTOSIS MOD; ELLIPTOCYTES PRESENT; SCHISTOCYTES PRESENT; TARGET CELLS MOD
[2017-07-29 23:46] LABS: HYPOCHROMIA MOD; SPHEROCYTE SL
[2017-07-30] MEDS ORDERED: CLARITIN10 M3 PO (00:35)
[2017-07-30 02:58] LABS: URINE SOURCE CLEAN CATCH
[2017-07-30 03:09] LABS: URINE APPEARANCE CLEAR; URINE BILIRUBIN NEG (NEG); URINE BLOOD NEG (NEG); URINE COLOR YELLOW; URINE GLUCOSE NEG (NEG); URINE KETONE NEG (NEG); URINE LEUKOCYTE ESTERASE NEG (NEG); URINE NITRATE NEG (NEG); URINE PROTEIN NEG (NEG); URINE SPECIFIC GRAVITY 1.006 (1.003-1.035); URINE UROBILINOGEN 0.2 MG/DL (NEG)
[2017-07-30 03:13] LABS: CULTURE INDICATED? NO
[2017-07-30 03:14] LABS: AMPHETAMINE NEG (NEG); BARBITURATES NEG (NEG); BENZODIAZEPINES NEG (NEG); COCAINE NEG (NEG); MARIJUANA POS (NEG); OPIATES POS (NEG); TRICYCLIC ANTIDEPRESSANTS POS (NEG); U METHADONE NEG (NEG)
[2017-07-30 06:43] LABS: BASOPHIL# 0.5 X10e3 (0-0.3); BASOPHIL% 5.6 % (0-2.5); EOSINOPHIL# 0.3 X10e3 (0-0.7); EOSINOPHIL% 3.7 % (0.0-7.0); HEMATOCRIT 23.8 % (38.0-50.0); HEMOGLOBIN 7.9 gm/dL (13.0-16.0); LYMPHOCYTE% 33.9 % (17.0-45.0); MEAN CORPUSCULAR HEMOGLOBIN 27.4 PG (28-34); MEAN CORPUSCULAR HGB CONC 33.4 g/dL (30-36); MEAN PLATELET VOLUME 7.3 FL (6.5-11.5); MONOCYTE% 11.2 % (3.0-12.0); NEUTROPHIL% 45.6 % (40-75); PLATELET COUNT 485 X10e3 (140-420); RED CELL DISTRIBUTION WIDTH 23.2 % (11.0-15.5); WHITE BLOOD COUNT 8.8 X10e3 (4.0-10.5)
[2017-07-30 06:44] LABS: DIFF IND YES
[2017-07-30 06:58] LABS: PLATELET ESTIMATE INCREASED (NORMAL)
[2017-07-30 06:59] LABS: ACANTHOCYTES PRESENT; HYPOCHROMIA MOD; MICROCYTOSIS SL; SCHISTOCYTES PRESENT
[2017-07-30 07:00] LABS: TARGET CELLS MOD
[2017-07-30 07:01] LABS: BUN/CREATININE RATIO 8.88; CALCIUM SERUM 7.6 mg/dL (8.4-10.2); CREATININE SERUM 0.9 mg/dL (0.6-1.4); GLOM FILT RATE Estimated 104.2 mL/min (>60)
== END 2017-07-30 08:45 | disposition left against medical advice (07) | DRG 379 ==
LOC: CED 21:43 → CEDOF 07-30 00:35 → CED 07-30 00:42 → CEDOF 07-30 08:11
PROVIDERS: Emergency Medicine
PROC: 30233N1 Transfusion of Nonautologous Red Blood Cells into Peripheral Vein, Percutaneous Approach (ICD-10-PCS; principal; 2017-07-30)
DX: K92.2 Gastrointestinal hemorrhage, unspecified (principal); D64.9 Anemia, unspecified; Z90.81 Acquired absence of spleen; F10.129 Alcohol abuse with intoxication, unspecified; Y90.6 Blood alcohol level of 120-199 mg/100 ml
CPT/HCPCS: 36415; 36430; 71010; 80048; 80076; 80307; 81003; 82150; 82947; 83690; 85025; 85610; 86850; 86900; 86901; 86923; 87040; 93005; 96361; 96374; 96375; 96376; 99285; C9113; G0480; J2405; P9016

== ENCOUNTER 2017-08-01 20:55 | Emergency (ER) | payer OTHER ==
[~2017-08-01] VITALS: Ht 177.8 cm; Wt 65.8 kg
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
[~2017-08-01 20:55] MED LIST changes: +CLARITIN10 M3 PO
[2017-08-01 22:56] LABS: BASOPHIL# 0.3 X10e3 (0-0.3); BASOPHIL% 1.9 % (0-2.5); EOSINOPHIL# 0.4 X10e3 (0-0.7); EOSINOPHIL% 2.4 % (0.0-7.0); HEMATOCRIT 26.8 % (38.0-50.0); HEMOGLOBIN 8.6 gm/dL (13.0-16.0); LYMPHOCYTE# 5.1 X10e3 (1.0-3.5); LYMPHOCYTE% 34.9 % (17.0-45.0); MEAN CELL VOLUME 83.7 FL (83-96); MEAN CORPUSCULAR HEMOGLOBIN 26.9 PG (28-34); MEAN CORPUSCULAR HGB CONC 32.2 g/dL (30-36); MONOCYTE# 0.9 X10e3 (0-1.0); MONOCYTE% 6.1 % (3.0-12.0); NEUTROPHIL% 54.7 % (40-75); PLATELET COUNT 302 X10e3 (140-420); RED CELL DISTRIBUTION WIDTH 23.9 % (11.0-15.5); WHITE BLOOD COUNT 14.6 X10e3 (4.0-10.5)
[2017-08-01 22:58] LABS: DIFF IND YES
[2017-08-01 23:08] LABS: PARTIAL THROMBOPLASTIN TIME 35.7 SECONDS (23.5-31.3); PROTHROMBIN TIME (PATIENT) 10.7 SECONDS (10.0-11.7)
[2017-08-01 23:13] LABS: HYPOCHROMIA SL; MICROCYTOSIS SL; NUCLEATED RED BLOOD CELL 2 /100 (0); PLATELET ESTIMATE NORMAL (NORMAL); TARGET CELLS MOD
[2017-08-01 23:14] LABS: HYPERSEGMENTED POLYS PRESENT; POIKILOCYTOSIS SL; SMUDGE CELLS 8 /100
[2017-08-01 23:15] LABS: TEAR DROP CELLS PRESENT
[2017-08-01 23:16] LABS: HOWELL-JOLLY BODIES PRESENT; POLYCHROMASIA SL
[2017-08-01 23:33] LABS: BILIRUBIN,TOTAL 0.2 mg/dL (0.2-2.0); BUN/CREATININE RATIO 7.5; CALCIUM SERUM 7.9 mg/dL (8.4-10.2); CREATININE SERUM 0.8 mg/dL (0.6-1.4); GLOM FILT RATE Estimated 109.5 mL/min (>60); POTASSIUM 3.8 mmol/L (3.5-5.1); PROTEIN TOTAL SERUM 6.7 g/dL (6.0-8.3)
== END 2017-08-02 05:40 | disposition short-term general hospital (02) ==
LOC: CED 20:55
PROVIDERS: Emergency Medicine
DX: S69.92XA Unspecified injury of left wrist, hand and finger(s), initial encounter (principal); F31.9 Bipolar disorder, unspecified; Z79.899 Other long term (current) drug therapy; X58.XXXA Exposure to other specified factors, initial encounter
CPT/HCPCS: 29280; 36415; 70450; 72040; 73140; 74177; 80053; 83690; 85025; 85610; 85730; 86850; 86900; 86901; 96360; 99285; G0480; Q9967